=== PATIENT | female | born 1960 ===

== ENCOUNTER 2020-08-04 13:38 | Outpatient (REF) | payer OTHER, SELFPAY | END 2020-08-04 13:39 | disposition home or self-care (01) | LOC: HO.HAP 13:38 | PROVIDERS: Visit Provider Internal Medicine | DX: H90.3 Sensorineural hearing loss, bilateral (principal) | CPT/HCPCS: 92591 ==

== ENCOUNTER 2020-09-14 10:19 | Outpatient (REF) | payer OTHER, SELFPAY | END 2020-09-14 10:20 | disposition home or self-care (01) | LOC: HO.HAP 10:19 | PROVIDERS: PCP Internal Medicine; Referring Provider Otolaryngology; Visit Provider Internal Medicine | DX: Z46.1 Encounter for fitting and adjustment of hearing aid (principal) | CPT/HCPCS: V5011; V5020; V5160; V5261 ==

== ENCOUNTER 2020-10-28 14:35 | Outpatient (REF) | payer SELFPAY | END 2020-10-28 14:36 | disposition home or self-care (01) | LOC: HO.HAP 14:35 | PROVIDERS: PCP Internal Medicine; Referring Provider Internal Medicine; Visit Provider Internal Medicine | DX: Z13.89 Encounter for screening for other disorder (principal) ==

== ENCOUNTER → 2020-11-13 15:43 | Outpatient (BNVA) | payer OTHER, SELFPAY | PROVIDERS: PCP Internal Medicine; Visit Provider Hospitalist | DX: Z76.89 Persons encountering health services in other specified circumstances (principal) ==

== ENCOUNTER → 2021-03-26 13:26 | Outpatient (BNVA) | payer OTHER, SELFPAY | PROVIDERS: PCP Internal Medicine; Visit Provider Hospitalist ==

== ENCOUNTER 2021-05-19 08:37 | Outpatient (REF) | payer OTHER, SELFPAY ==
[2021-05-19 10:06] LABS: MANUAL DIFF FLAG NO
[2021-05-19 10:30] LABS: Basophils Absolute Auto 0.1 X10*3/uL (0.0-0.2); Basophils Percent Auto 1.5 % (0-2); Eosinophils Absolute Auto 0.2 X10*3/uL (0.0-0.4); Eosinophils Percent Auto 2.7 % (0-4); Hematocrit 41.2 % (37-47); Hemoglobin 13.2 g/dl (12.0-16.0); Imm Gran Abs Auto 0.02 X10*3/uL (0.00-0.03); Imm Gran Pct Auto 0.3 % (0.0-0.4); Lymphocytes Absolute Auto 1.8 X10*3/uL (1.2-4.9); Lymphocytes Percent Auto 29.1 % (20-40); Mean Corpuscular Hemoglobin 27.9 pg (27.0-33.0); Mean Corpuscular Volume 87.1 fL (80-98); Mean Platelet Volume 10.5 fL (9.4-12.3); Monocytes Absolute Auto 0.4 X10*3/uL (0.1-1.2); Monocytes Percent Auto 6.5 % (2-11); Neutrophils Absolute Auto 3.6 X10*3/uL (2.0-8.3); Neutrophils Percent Auto 59.9 % (45-73); Platelet Count 187 X10*3/uL (160-400); Red Blood Count 4.73 X10*6/uL (4.20-5.50)
[2021-05-19 11:22] LABS: Erythrocyte Sedimentation Rate 8 MM/HR (0-20)
[2021-05-20 12:11] LABS: Myeloperoxidase Antibody <1.0 AI; Proteinase 3 PR3 Antibodies <1.0 AI
[2021-05-20 22:53] LABS: Anti Nuclear Antibody Pattern Nuclear, Speckled; Anti Nuclear Antibody Screen POSITIVE (NEGATIVE)
[2021-05-25 16:12] LABS: Cyclic Citrullinated Peptide <16 UNITS
[2021-05-28 14:36] LABS: Asperg fumigatus Precip Abs NEGATIVE (NEGATIVE); Micropoly faeni Abs NEGATIVE (NEGATIVE); Pigeon serum Abs NEGATIVE (NEGATIVE); Saccharo pora viridis Abs NEGATIVE (NEGATIVE); Thermo candidus Abs NEGATIVE (NEGATIVE); Thermoa vulgaris #1 NEGATIVE (NEGATIVE)
[2021-05-28 22:41] LABS: Angiotensin Converting Enzyme 7 U/L (9-67)
== END 2021-05-19 08:38 | disposition home or self-care (01) ==
LOC: HO.LAB 08:37
PROVIDERS: PCP Internal Medicine; Visit Provider Hospitalist
DX: R91.8 Other nonspecific abnormal finding of lung field (principal); K44.9 Diaphragmatic hernia without obstruction or gangrene; J44.9 Chronic obstructive pulmonary disease, unspecified
CPT/HCPCS: 36415; 82164; 85025; 85652; 86021; 86038; 86039; 86200; 86331; 86606; 86609

== ENCOUNTER → 2021-07-21 08:44 | Outpatient (BNVA) | payer OTHER, SELFPAY | PROVIDERS: PCP Internal Medicine; Visit Provider Hospitalist ==

== ENCOUNTER → 2021-12-15 13:09 | Outpatient (BNVA) | payer OTHER, SELFPAY | PROVIDERS: PCP Internal Medicine; Visit Provider Dietitian, Registered | DX: E11.9 Type 2 diabetes mellitus without complications (principal) | CPT/HCPCS: 97802 ==

== ENCOUNTER → 2022-02-04 14:24 | Outpatient (BNVA) | payer OTHER, SELFPAY | PROVIDERS: PCP Internal Medicine; Visit Provider Hospitalist | DX: Z13.89 Encounter for screening for other disorder (principal) ==

== ENCOUNTER 2022-04-11 14:27 | Outpatient (REF) | payer OTHER, SELFPAY ==
[2022-04-11 14:45] LABS: MANUAL DIFF FLAG NO
[2022-04-11 15:03] LABS: Basophils Absolute Auto 0.1 X10*3/uL (0.0-0.2); Basophils Percent Auto 0.9 % (0-2); Eosinophils Absolute Auto 0.1 X10*3/uL (0.0-0.4); Eosinophils Percent Auto 0.7 % (0-4); Hematocrit 40.8 % (37.0-47.0); Hemoglobin 12.9 g/dl (12.0-16.0); Imm Gran Abs Auto 0.02 X10*3/uL (0.00-0.03); Imm Gran Pct Auto 0.3 % (0.0-0.4); Lymphocytes Absolute Auto 1.8 X10*3/uL (1.2-4.9); Lymphocytes Percent Auto 24.2 % (20-40); Mean Corpuscular HGB Conc 31.6 g/dl (31.0-35.0); Mean Corpuscular Hemoglobin 27.7 pg (27.0-33.0); Mean Corpuscular Volume 87.6 fL (80.0-98.0); Mean Platelet Volume 10.7 fL (9.4-12.3); Monocytes Absolute Auto 0.4 X10*3/uL (0.1-1.2); Monocytes Percent Auto 5.1 % (2-11); Neutrophils Absolute Auto 5.2 x10*3/uL (2.0-8.3); Neutrophils Percent Auto 68.8 % (45-73); Platelet Count 216 X10*3/uL (160-400); Red Blood Count 4.66 X10*6/uL (4.20-5.50); Red Cell Distribution Width 13.1 % (11.0-16.0); White Blood Count 7.6 X10*3/uL (4.8-10.8)
[2022-04-11 16:15] LABS: Erythrocyte Sedimentation Rate 6 MM/HR (0-20)
[2022-04-13 22:03] LABS: Anti Nuclear Antibody Screen POSITIVE (NEGATIVE)
[2022-04-14 11:37] LABS: IgA 210 mg/dL (70-320); IgG 590 mg/dL (600-1540); IgM 85 mg/dL (50-300)
[2022-04-15 15:33] LABS: Anti DNA DS Antibody <1 IU/mL; Antibody to SS-A Antigen <1.0 NEG AI (<1.0 NEG); Antibody to SS-B Antigen <1.0 NEG AI (<1.0 NEG)
== END 2022-04-11 14:28 | disposition home or self-care (01) ==
LOC: HO.LAB 14:27
PROVIDERS: PCP Internal Medicine; Visit Provider Hospitalist
DX: J44.9 Chronic obstructive pulmonary disease, unspecified (principal); R91.8 Other nonspecific abnormal finding of lung field
CPT/HCPCS: 36415; 82784; 82785; 85025; 85652; 86003; 86038; 86039; 86225; 86235

== ENCOUNTER → 2023-02-10 15:18 | Outpatient (BNVA) | payer OTHER, SELFPAY | PROVIDERS: PCP Internal Medicine; Visit Provider Hospitalist | DX: J44.9 Chronic obstructive pulmonary disease, unspecified (principal) ==

== ENCOUNTER 2023-06-05 14:07 | Outpatient (AMB) | payer OTHER, SELFPAY ==
[2023-06-05 14:10] VITALS: BP 118/70; PULSE 87; O2SAT 98; BMI 32.3
--- NOTE | 2023-06-05 14:10 | MHC.OFFVIS ---
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 Overall she is doing well. She continues use the oxygen supplementation at nighttime with very good effect. She also continues with the current respiratory regimen and her allergy medicine. She has been having increasing chest congestion and shortness of breath. In addition to that has noticed that worsening acid reflux disease. She is taking aovw-rup-iolgbhx omeprazole with partial improvement of the symptoms. She is also taking Tums as needed. She did follow-up with GI and is scheduled to undergo a barium swallow an additional evaluations pending. In the office we did take time to speak about the reflux diet in the importance of following closely in addition to having the small meals not eating too late and also sleeping elevated. She is going to try to follow up the recommendations to minimize her symptoms. 05/19/2021 the patient is here for pulmonary follow-up visit. Recently she was evaluated with an MRI of her pelvis and a noted some a malaise. I do not have the results. 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 In the meantime we did follow-up with a CT scan of the chest based on the pulmonary nodule that was identified on her CT scan of the abdomen. It appears she has numerous nodules up to 30 mm. The largest 1 measuring 9 mm in size in the left side. She also has an 8 mm nodule in the right hemithorax. The the etiology of the nodules are clear. Although, metastatic disease needs to be kept in differential the was also for inflammatory issues which could also result to pulmonary nodules. we did talk about different options to further address the pulmonary nodules. Based on the fact that some of the nodules were greater than or equal to 8 mm in size a PET scan will be able to further Blaise eyes these nodules. But, she is concerned about the cost of all of his testing. Therefore, will have her undergo blood work and then she can follow up with you in the can decide as far as CT scan versus repeating the CT scan in 3 months. in the meantime she is going to continue using her respiratory therapy and continues use the oxygen at nighttime. 07/21/2021 the patient is here for a pulmonary follow-up visit. She continues to have significant malaise and daytime drowsiness. Her Ayden score is elevated 14/24. she does struggle with a diagnosis of obstructive sleep apnea. The patient has tried and failed CPAP twice. We did talk about different alternatives. In addition to this currently she is on nocturnal oxygen which is partially helpful. However, she is not always adherent to the therapy. We did discuss her abnormal CT scan of the chest back in March 2021 demonstrating a 9 mm pulmonary nodule in the right middle lobe area. The patient also has other smaller nodules. Indeed with her ongoing symptoms of malaise and this abnormal finding malignancy has to be a high suspicion. She is also struggling with the diagnosis of a pulmonary nodule or cyst on 1 of her ovaries that is also being followed closely. In view of the abnormal pulmonary nodule I do believe that the rise time will be to do a PET scan at this time in order to see if this is a hypermetabolic lesion. the patient will talk to her cutter and presser to see if this is a good option to also address her adnexal lesion. 02/04/2022 the patient is here for a pulmonary follow-up visit. Since we last spoke the patient has been having little bit more chest congestion and cough. Moderate severity. Has been having some chest tightness and has required her short-acting beta agonist. Otherwise the patient is doing well. She continues to lose weight. She is still using the oxygen at nighttime at 3 L. She is wondering does enough oxygen for her. Will reassess by ordering another overnight test on her 3 L to determine if she is getting adequate oxygenation. The patient also has underlying pulmonary nodules. When we evaluated her back in the fall there was a concern a 9 mm pulmonary nodule in the underlying symptoms of fatigue and malaise as well as the ovarian lesion. Therefore PET scan may be something reasonable to do. However, the patient ended up getting a CT scan of the chest sometime in July 2021. It appeared that the 9 mm pulmonary nodule had not significantly changed from previous. However, she does have a repeat CT scan pending for January with hopes that this nodule has not changed either. If there is any significant changes we will talk about further diagnostic interventions. 04/11/2022 the patient is here for pulmonary follow-up visit. The patient had been doing well from a respiratory status at this time. She does continue to have an intermittent cough. She also complains of dry mouth and dry eyes. We did review her blood work that she had recently demonstrating an elevated AFUA. Therefore follow-up with additional testing specially with the possibility of a connective tissue disease related interstitial lung process. The patient did have a recent CT scan of the chest that we personally reviewed from back in the spring 2021. It appears that she still has multiple pulmonary nodules. Her largest nodule measuring in the right hemithorax. She has the other numerous nodules. There appear to be significantly changed from her last CT scan 6 months ago although is looks slightly larger and prominent size at least the largest nodule. Therefore plan to follow-up with a CT scan in 6-8 months. She was supposed to have an overnight oximetry but the patient was not able to follow through with the scheduling. 08/05/2022 the patient is here for a pulmonary follow-up visit. The patient does complaint of some chest tightness and wheezing. Rnhi-nx-tqhfhvze severity. Only partially improving with the Advair. Will go ahead and maximize her respiratory therapy by switching over to Trelegy inhaler. She also has a rescue inhaler and also her allergy therapies. Patient continues use the oxygen at nighttime with good effect. In addition to that we did review her last CT scan demonstrating pulmonary nodules. She was due for CT scan in September 2022. However, she is reluctant to get a so soon she opts on pushing it back a little bit. Therefore we agree to change it to January of next year. therefore, will go ahead and schedule for CT scan in January and follow up with her afterwards to review the results. If the patient has any worsening symptoms prior to that she is to call the office for an earlier evaluation. 02/10/2023 the patient is here for a pulmonary follow-up visit. The patient overall is doing better. She is responding better to the Advair. She had an adverse response to the Trelegy and she stopped it. She has not had to use her rescue inhaler. The patient is also not using the oxygen at this time. Therefore will go ahead and discontinue it. If she does decide to use it again and if she is symptomatic we can always reorder the the study to reassess her needs. She also underwent a CT scan of the chest sometime 01/16/2023 to follow-up with pulmonary nodules which appear to be stable when compared to 2021. Will go ahead and repeat 1 more time to make sure that this stability of disease and then we can just follow as needed. If the patient develops any issues prior to her next follow-up in a year she can always call for an earlier evaluation 06/05/2023 the patient is here for a pulmonary follow-up visit. Overall she is doing well. She did have 1 episode where she was exposed to pesticides and she had a reaction where she had an asthma flare-up. She did require her nebulizer. Patient now is back to her baseline. She continues use her respiratory therapy as prescribed. The patient did run out of her medication and she needs to feels. I will notice that all her medications to the pharmacy at this time. The patient also had a CT scan last back in January 2023. based on the fact that clinically she is doing we will postpone her CT scan until a year from now. The patient does have pulmonary nodules. Subcentimeter in size. I am hoping that if her CT scan from May is stable then no further serial CT scans will be warranted. If the patient has any issues prior to the next appointment she is to call the office for an earlier assessment. [facility] Medical History (Updated 04/12/22 @ 00:03 by Dionisio Navarrete MD) Asthma-COPD overlap syndrome Diabetes Hiatal hernia VALARIE (obstructive sleep apnea) Pulmonary nodules Weight loss advised Social History (Updated 03/26/21 @ 13:41 by PROSPER Arora) Patient Tobacco Use Status: Never used Tobacco Review of Systems Const Denies daytime sleepiness, Denies fatigue, Denies lethargy, Denies malaise, Denies night sweats and Reports weight loss ENT Denies change in voice, Denies lip swelling, Denies mouth pain, Reports nasal congestion, Reports nasal discharge and Denies tongue swelling Card Denies chest pain Resp Denies chest congestion, Reports cough and Reports wheezing GI Denies abdominal pain Reports pelvic pain Musc Denies no additional complaints Neuro Denies Neuro-related abnormal movements Psych Denies no additional complaints Endo Denies fatigue Jaciel/Lymph Denies easy bleeding and Denies lymphadenopathy Aller/Immun Denies lip swelling, Denies tongue swelling and Reports wheezing Physical Exam Vital Signs: Last Vital Signs Pulse 87 06/05/23 14:10 BP 118/70 06/05/23 14:10 Pulse Ox 98 06/05/23 14:10 Oxygen Delivery Method Room Air 06/05/23 14:10 BMI result Body Mass Index 32.3 Const General: alert Neck Neck: Yes normal visual inspection, Yes full ROM and Yes no lymphadenopathy Chest Chest palpation & inspection: normal inspection of the chest Resp Auscultation: diminished lung sounds Cardio Rate: regular rate Rhythm: regular rhythm Heart sounds: S1 normal heart sound present and S2 normal heart sound present GI Palpation (GI): Soft to palpation and nontender Auscultation: normal bowel sounds Skin General skin exam: rashes and/or lesions noted Immunizations pneumoc 20-andrei conj-dip cr(PF) Performing Provider: Dionisio Navarrete MD Administered by: Muriel Norman LPN on 06/05/23 14:43 Dose Route Admin Location Lot Number Expiration Date NDC Manager Zone 0.5 mL IM Left Deltoid [id number] 08/29/25 6658-0033-73 [employer] VIS Given Date VIS Provided VIS Publication Date 06/05/23 Single Vaccine 23 Eligibility Eligibility Date Funding Source Not [facility] Eligible 06/05/23 Private Assessment & Plan Assessment & Plan (1) Pulmonary nodules: Code(s): R91.8 - Other nonspecific abnormal finding of lung field (2) Hiatal hernia: Code(s): K44.9 - Diaphragmatic hernia without obstruction or gangrene (3) Asthma-COPD overlap syndrome: Code(s): J44.9 - Chronic obstructive pulmonary disease, unspecified (4) VALARIE (obstructive sleep apnea): Comment: Does not tolerate CPAP therapy. Multiple attempts failed Code(s): G47.33 - Obstructive sleep apnea (adult) (pediatric) (5) AFUA positive: Code(s): R76.8 - Other specified abnormal immunological findings in serum Plan Repeat CT scan of the chest in 1 year continue Advair HFA short-acting beta agonist as needed Prevnar 20 F/U 1 year Orders: Orders Pneumococcal 20 Immunization Today Z23 - Encounter for immunization Medications: New mupirocin 2% 1 appl topical BID 10 days 15 grams 0RF Changed From fluticasone propion-salmeterol 230-21 mcg/actuation 2 puffs PO BID 12 grams 0RF To fluticasone propion-salmeterol 230-21 mcg/actuation 2 puffs PO BID 30 days 12 grams 11RF From cetirizine 10 mg PO DAILY 90 tabs 0RF To cetirizine 10 mg PO DAILY 90 days 90 tabs 3RF Refilled albuterol sulfate 2.5 mg (3 mL) inhalation Q4-6H 30 days PRN 180 mL 11RF shortness of breath or wheezing albuterol sulfate 90 mcg/actuation (ProAir HFA) 2 puffs inhalation Q6H PRN 1 ea 11RF shortness of breath or wheezing montelukast 10 mg PO BEDTIME 90 tabs 3RF J45.909 - Unspecified asthma, uncomplicated Discontinued mfoxxeamrqt-ixiqoyvwe-pbucccsk 100-62.5-25 mcg (Trelegy Ellipta) Discontinued Reason: Doctor's Order 1 inh inhalation DAILY 30 days 60 ea 11RF J44.9 - Chronic obstructive pulmonary disease, unspecified Coding Level of Care Code Est Pt Level 4 (25125) Diagnoses Pulmonary nodules R91.8 Hiatal hernia K44.9 Asthma-COPD overlap syndrome J44.9 VALARIE (obstructive sleep apnea) G47.33 AFUA positive R76.8 Time Spent (min) 18
== END 2023-06-05 14:45 | disposition home or self-care (01) ==
PROVIDERS: PCP Internal Medicine; Visit Provider Hospitalist
DX: R91.8 Other nonspecific abnormal finding of lung field (principal); K44.9 Diaphragmatic hernia without obstruction or gangrene; J44.9 Chronic obstructive pulmonary disease, unspecified; G47.33 Obstructive sleep apnea (adult) (pediatric); R76.8 Other specified abnormal immunological findings in serum
CPT/HCPCS: 99214

== ENCOUNTER → 2023-06-05 14:07 | Outpatient (BNVA) | payer OTHER, SELFPAY | PROVIDERS: PCP Internal Medicine; Visit Provider Hospitalist | DX: J44.9 Chronic obstructive pulmonary disease, unspecified (principal); R91.8 Other nonspecific abnormal finding of lung field; E11.9 Type 2 diabetes mellitus without complications; E66.9 Obesity, unspecified; G47.33 Obstructive sleep apnea (adult) (pediatric); K44.9 Diaphragmatic hernia without obstruction or gangrene; R76.8 Other specified abnormal immunological findings in serum; Z68.32 Body mass index [BMI] 32.0-32.9, adult; Z23 Encounter for immunization | CPT/HCPCS: 90471; 90677 ==

== ENCOUNTER 2024-01-22 10:51 | Outpatient (AMB) | payer OTHER, SELFPAY ==
[2024-01-22 10:58] VITALS: PULSE 92; O2SAT 96; BMI 33.1
--- NOTE | 2024-01-22 10:58 | A.OFFVIS_ITS ---
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 Overall she is doing well. She continues use the oxygen supplementation at nighttime with very good effect. She also continues with the current respiratory regimen and her allergy medicine. She has been having increasing chest congestion and shortness of breath. In addition to that has noticed that worsening acid reflux disease. She is taking [id number] omeprazole with partial improvement of the symptoms. She is also taking Tums as needed. She did follow-up with GI and is scheduled to [facility] a barium swallow an additional evaluations pending. In the office we did take time to speak about the reflux diet in the importance of following closely in addition to having the small meals not eating too late and also sleeping elevated. She is going to try to follow up the recommendations to minimize her symptoms. 05/19/2021 the patient is here for pulmonary follow-up visit. Recently she was evaluated with an MRI of her pelvis and a noted some a malaise. I do not have the results. The patient is currently waiting to be seen by obstetrics gynecology physician. In the meantime we did follow-up with a CT scan of the chest based on the pulmonary nodule that was identified on her CT scan of the abdomen. It appears she has numerous nodules up to 30 mm. The largest 1 measuring 9 mm in size in the left side. She also has an 8 mm nodule in the right hemithorax. The the etiology of the nodules are clear. Although, metastatic disease needs to be kept in differential the was also for inflammatory issues which could also result to pulmonary nodules. we did talk about different options to further address the pulmonary nodules. Based on the fact that some of the nodules were greater than or equal to 8 mm in size a PET scan will be able to further Blaise eyes these nodules. But, she is concerned about the cost of all of his testing. Therefore, will have her undergo blood work and then she can follow up with you in the can decide as far as CT scan versus repeating the CT scan in 3 months. in the meantime she is going to continue using her respiratory therapy and continues use the oxygen at nighttime. 07/21/2021 the patient is here for a pulmonary follow-up visit. She continues to have significant malaise and daytime drowsiness. Her [place] score is elevated 14/24. she does struggle with a diagnosis of obstructive sleep apnea. The patient has tried and failed CPAP twice. We did talk about different alternatives. In addition to this currently she is on nocturnal oxygen which is partially helpful. However, she is not always adherent to the therapy. We did discuss her abnormal CT scan of the chest back in March 2021 demonstrating a 9 mm pulmonary nodule in the right middle lobe area. The patient also has other smaller nodules. Indeed with her ongoing symptoms of malaise and this abnormal finding malignancy has to be a high suspicion. She is also struggling with the diagnosis of a pulmonary nodule or cyst on 1 of her ovaries that is also being followed closely. In view of the abnormal pulmonary nodule I do believe that the rise time will be to do a PET scan at this time in order to see if this is a hypermetabolic lesion. the patient will talk to her fiberglass laminator to see if this is a good option to also address her adnexal lesion. 02/04/2022 the patient is here for a pulmonary follow-up visit. Since we last spoke the patient has been having little bit more chest congestion and cough. Moderate severity. Has been having some chest tightness and has required her short-acting beta agonist. Otherwise the patient is doing well. She continues to lose weight. She is still using the oxygen at nighttime at 3 L. She is wondering does enough oxygen for her. Will reassess by ordering another overnight test on her 3 L to determine if she is getting adequate oxygenation. The patient also has underlying pulmonary nodules. When we evaluated her back in the fall there was a concern a 9 mm pulmonary nodule in the underlying symptoms of fatigue and malaise as well as the ovarian lesion. Therefore PET scan may be something reasonable to do. However, the patient ended up getting a CT scan of the chest sometime in July 2021. It appeared that the 9 mm pulmonary nodule had not significantly changed from previous. However, she does have a repeat CT scan pending for January with hopes that this nodule has not changed either. If there is any significant changes we will talk about further diagnostic interventions. 04/11/2022 the patient is here for pulmonary follow-up visit. The patient had been doing well from a respiratory status at this time. She does continue to have an intermittent cough. She also complains of dry mouth and dry eyes. We did review her blood work that she had recently demonstrating an elevated AFUA. Therefore follow-up with additional testing specially with the possibility of a connective tissue disease related interstitial lung process. The patient did have a recent CT scan of the chest that we personally reviewed from back in the spring 2021. It appears that she still has multiple pulmonary nodules. Her largest nodule measuring in the right hemithorax. She has the other numerous nodules. There appear to be significantly changed from her last CT scan 6 months ago although is looks slightly larger and prominent size at least the largest nodule. Therefore plan to follow-up with a CT scan in 6-8 months. She was supposed to have an overnight oximetry but the patient was not able to follow through with the scheduling. 08/05/2022 the patient is here for a pulmonary follow-up visit. The patient does complaint of some chest tightness and wheezing. Iilj-dj-qimsdjry severity. Only partially improving with the Advair. Will go ahead and maximize her respiratory therapy by switching over to Trelegy inhaler. She also has a rescue inhaler and also her allergy therapies. Patient continues use the oxygen at nighttime with good effect. In addition to that we did review her last CT scan demonstrating pulmonary nodules. She was due for CT scan in September 2022. However, she is reluctant to get a so soon she opts on pushing it back a little bit. Therefore we agree to change it to January of next year. therefore, will go ahead and schedule for CT scan in January and follow up with her afterwards to review the results. If the patient has any worsening symptoms prior to that she is to call the office for an earlier evaluation. 02/10/2023 the patient is here for a pulm onary follow-up visit. The patient overall is doing better. She is responding better to the Advair. She had an adverse response to the Trelegy and she stopped it. She has not had to use her rescue inhaler. The patient is also not using the oxygen at this time. Therefore will go ahead and discontinue it. If she does decide to use it again and if she is symptomatic we can always reorder the the study to reassess her needs. She also underwent a CT scan of the chest sometime 01/16/2023 to follow- up with pulmonary nodules which appear to be stable when compared to 2021. Will go ahead and repeat 1 more time to make sure that this stability of disease and then we can just follow as needed. If the patient develops any issues prior to her next follow-up in a year she can always call for an earlier evaluation 06/05/2023 the patient is here for a pulmonary follow-up visit. Overall she is doing well. She did have 1 episode where she was exposed to pesticides and she had a reaction where she had an asthma flare-up. She did require her nebulizer. Patient now is back to her baseline. She continues use her respiratory therapy as prescribed. The patient did run out of her medication and she needs to feels. I will notice that all her medications to the pharmacy at this time. The patient also had a CT scan last back in January 2023. based on the fact that clinically she is doing we will postpone her CT scan until a year from now. The patient does have pulmonary nodules. Subcentimeter in size. I am hoping that if her CT scan from May is stable then no further serial CT scans will be warranted. If the patient has any issues prior to the next appointment she is to call the office for an earlier assessment. 01/22/2024 the patient is here for a pulm onary follow-up visit. The patient chase hdz has been doing fairly well. She continues to respond well to the Advair inhaler. She noticed initially that when she was using it once a day she was having still some symptoms in the evening. Also in the morning. Now that she is using it twice a day her symptoms are much improved. She is pain about 50 dollars per inhaler which she is expensive. She is wondering about a cheaper 1. I did recommend she can try generic Symbicort. Although right now she does not want switch because she knows that the Advair has been helping her. She can always call and I can send a new prescription whenever she likes. In the meantime she continues have daytime drowsiness. She has a known history of severe sleep apnea. She can not tolerate the CPAP. But it seems that did daytime drowsiness is getting worse now with an elevated [place] score of 13/24. Therefore, will go ahead and repeat a home sleep study this time. The patient does have cardiovascular risk factors. The patient also had a CT scan of the chest done in December 2023 which I personally reviewed with her. The patient has multiple pulmonary nodules. The largest 1 in the right middle lobe area measuring about 6 mm in size. I did personally review the CAT scan with her and we looked at multiple CT scans where the nodule seems to vary in size but a lot has to do with the cut itself and also the ways measure. For the most part is about the same. Therefore, will go ahead and hold off on additional imaging studies. Although I did advise her that may be a year and a half to 2 years which should consider reimaging. Or, the patient becomes symptomatic in any way we can also consider imaging at that point. The patient is wondering about the diagnosis of asthma COPD overlap syndrome. Her breathing overall is better. She is wondering about the obstruction. Will have her undergo a pulmonary function study and have her come back and will review together in 4-6 months. [facility] Medical History (Updated 01/23/24 @ 08:23 by Dionisio Navarrete MD) Weight loss advised Diabetes Pulmonary nodules Hiatal hernia VALARIE (obstructive sleep apnea) Asthma-COPD overlap syndrome Social History (Updated 03/26/21 @ 13:41 by PROSPER Arora) Patient Tobacco Use Status: Never used Tobacco Review of Systems Const Reports daytime sleepiness, Reports difficulty sleeping, Denies fatigue, Denies lethargy, Denies malaise, Denies night sweats, Reports snoring, Reports stops breathing during sleep and Reports weight loss ENT Denies change in voice, Denies lip swelling, Denies mouth pain, Reports nasal congestion, Reports nasal discharge and Denies tongue swelling Card Denies chest pain Resp Denies chest congestion, Reports cough, Reports snoring and Reports wheezing GI Denies abdominal pain Reports pelvic pain Musc Denies no additional complaints Neuro Denies Neuro-related abnormal movements Psych Denies no additional complaints Endo Denies fatigue Jaciel/Lymph Denies easy bleeding and Denies lymphadenopathy Aller/Immun Denies lip swelling, Denies tongue swelling and Reports wheezing Physical Exam Vital Signs: Last Vital Signs Pulse 92 01/22/24 10:58 Pulse Ox 96 01/22/24 10:58 Oxygen Delivery Method Room Air 01/22/24 10:58 BMI result Body Mass Index 33.1 Const General: alert Neck Neck: Yes normal visual inspection, Yes full ROM and Yes no lymphadenopathy Chest Chest palpation & inspection: normal inspection of the chest Resp Auscultation: diminished lung sounds Cardio Rate: regular rate Rhythm: regular rhythm Heart sounds: S1 normal heart sound present and S2 normal heart sound present GI Palpation (GI): Soft to palpation and nontender Auscultation: normal bowel sounds Skin General skin exam: rashes and/or lesions noted Assessment & Plan Assessment & Plan (1) Pulmonary nodules: Code(s): R91.8 - Other nonspecific abnormal finding of lung field (2) Hiatal hernia: Code(s): K44.9 - Diaphragmatic hernia without obstruction or gangrene (3) Asthma-COPD overlap syndrome: Code(s): J44.9 - Chronic obstructive pulmonary disease, unspecified (4) VALARIE (obstructive sleep apnea): Comment: Does not tolerate CPAP therapy. Multiple attempts failed, elevated EPWORTH Code(s): G47.33 - Obstructive sleep apnea (adult) (pediatric) (5) AFUA positive: Code(s): R76.8 - Other specified abnormal immunological findings in serum Plan no need to repeat CT scan of the chest at this time. Consider in 18-24 months continue Advair HFA, consider generic Symbicort short-acting beta agonist as needed Home PSG PFTs F/U 6 months Orders: Orders PFT pulmonary function test 01/22/24 G47.33 - Obstructive sleep apnea (adult) (pediatric), J44.9 - Chronic obstructive pulmonary disease, unspecified RT home sleep study 01/22/24 G47.33 - Obstructive sleep apnea (adult) (pediatric), J44.9 - Chronic obstructive pulmonary disease, unspecified Medications: Changed From albuterol sulfate 90 mcg/actuation (ProAir HFA) 2 puffs inhalation Q6H PRN 1 ea 11RF shortness of breath or wheezing To albuterol sulfate 90 mcg/actuation 2 puffs inhalation Q6H PRN 8.5 grams 11RF shortness of breath or wheezing Refilled fluticasone propion-salmeterol 230-21 mcg/actuation (Advair HFA) 2 puffs PO BID 12 grams 0RF Coding Level of Care Code Est Pt Level 4 (62467) Diagnoses Pulmonary nodules R91.8 Hiatal hernia K44.9 Asthma-COPD overlap syndrome J44.9 VALARIE (obstructive sleep apnea) G47.33 AFUA positive R76.8 Time Spent (min) 18
== END 2024-01-22 12:56 | disposition home or self-care (01) ==
PROVIDERS: PCP Internal Medicine; Visit Provider Hospitalist
DX: R91.8 Other nonspecific abnormal finding of lung field (principal); K44.9 Diaphragmatic hernia without obstruction or gangrene; J44.9 Chronic obstructive pulmonary disease, unspecified; G47.33 Obstructive sleep apnea (adult) (pediatric); R76.8 Other specified abnormal immunological findings in serum
CPT/HCPCS: 99214

== ENCOUNTER → 2024-01-22 10:51 | Outpatient (BNVA) | payer OTHER, SELFPAY | PROVIDERS: PCP Internal Medicine; Visit Provider Hospitalist ==

== ENCOUNTER 2024-03-29 14:28 | Outpatient (REF) | payer OTHER, SELFPAY ==
[2024-03-29 10:14] VITALS: PULSE 90; RESP 16; O2SAT 98
--- NOTE | 2024-03-29 16:33 | PFT_ITS ---
Flows: FEV1: 103 % of predicted at 2.03 L FVC: 91 % of predicted at 2.29 L FEV1/FVC: 89 % Bronchodilator response: Absent Volumes: Total lung capacity: 85 % of predicted at 3.57 L Residual volume: 79 % of predicted at 1.22 L Slow vital capacity: 87 % of predicted at 2.35 L Expiratory reserve volume: 82 % of predicted at 0.51 L Diffusion capacity: Normal Impression: No obstructive or restrictive ventilatory defect. No bronchodilator response. Normal pulmonary function test. MTDD
== END 2024-03-29 14:29 | disposition home or self-care (01) ==
LOC: HO.RESP 14:28
PROVIDERS: PCP Internal Medicine; Visit Provider Hospitalist
DX: J44.9 Chronic obstructive pulmonary disease, unspecified (principal); G47.33 Obstructive sleep apnea (adult) (pediatric)
CPT/HCPCS: 94010; 94640; 94727; 94729

== ENCOUNTER → 2024-03-29 16:33 | Outpatient (BNV) | payer OTHER, SELFPAY | PROVIDERS: PCP Internal Medicine; Visit Provider Internal Medicine Pulmonary Disease | DX: J44.9 Chronic obstructive pulmonary disease, unspecified (principal) | CPT/HCPCS: 94060; 94727; 94729 ==

== ENCOUNTER 2024-05-30 10:46 | Outpatient (AMB) | payer OTHER, SELFPAY ==
--- NOTE | 2024-05-30 10:50 | MHC.OFFVIS ---
Vital Signs 05/30/24 10:52 Height 4 ft 11 in Weight 168 lb 10.458 oz BMI 34.1 Pulse 89 Pulse Source Pulse Oximeter Pulse Oximetry (%) 98 Oxygen Delivery Method Room Air Intake Visit Reasons: Pulm Nodules/PFT Sleep Study Follow Up Staff Climate Scientist Required: No Allergies Penicillins Allergy (Severe, Verified 05/30/24 10:50) HIVES fluticasone furoate [From Trelegy Ellipta] Adverse Reaction (Intermediate, Verified 05/30/24 10:50) Agitated umeclidinium [From Trelegy Ellipta] Adverse Reaction (Intermediate, Verified 05/30/24 10:50) Agitated vilanterol [From Trelegy Ellipta] Adverse Reaction (Intermediate, Verified 05/30/24 10:50) Agitated HPI Comments Details: The patient is a 64-year-old woman with a known history of asthma COPD overlap syndrome, diabetes and obesity. Overall she is doing well. She continues use the oxygen supplementation at nighttime with very good effect. She also continues with the current respiratory regimen and her allergy medicine. She has been having increasing chest congestion and shortness of breath. In addition to that has noticed that worsening acid reflux disease. She is taking [id number] omeprazole with partial improvement of the symptoms. She is also taking Tums as needed. She did follow-up with GI and is scheduled to undergo a barium swallow an additional evaluations pending. In the office we did take time to speak about the reflux diet in the importance of following closely in addition to having the small meals not eating too late and also sleeping elevated. She is going to try to follow up the recommendations to minimize her symptoms. 05/19/2021 the patient is here for pulmonary follow-up visit. Recently she was evaluated with an MRI of her pelvis and a noted some a malaise. I do not have the results. The patient is currently waiting to be seen by software release manager. In the meantime we did follow-up with a CT scan of the chest based on the pulmonary nodule that was identified on her CT scan of the abdomen. It appears she has numerous nodules up to 30 mm. The largest 1 measuring 9 mm in size in the left side. She also has an 8 mm nodule in the right hemithorax. The the etiology of the nodules are clear. Although, metastatic disease needs to be kept in differential the was also for inflammatory issues which could also result to pulmonary nodules. we did talk about different options to further address the pulmonary nodules. Based on the fact that some of the nodules were greater than or equal to 8 mm in size a PET scan will be able to further Blaise eyes these nodules. But, she is concerned about the cost of all of his testing. Therefore, will have her undergo blood work and then she can follow up with you in the can decide as far as CT scan versus repeating the CT scan in 3 months. in the meantime she is going to continue using her respiratory therapy and continues use the oxygen at nighttime. 07/21/2021 the patient is here for a pulmonary follow-up visit. She continues to have significant malaise and daytime drowsiness. Her [place] score is elevated 14/24. she does struggle with a diagnosis of obstructive sleep apnea. The patient has tried and failed CPAP twice. We did talk about different alternatives. In addition to this currently she is on nocturnal oxygen which is partially helpful. However, she is not always adherent to the therapy. We did discuss her abnormal CT scan of the chest back in March 2021 demonstrating a 9 mm pulmonary nodule in the right middle lobe area. The patient also has other smaller nodules. Indeed with her ongoing symptoms of malaise and this abnormal finding malignancy has to be a high suspicion. She is also struggling with the diagnosis of a pulmonary nodule or cyst on 1 of her ovaries that is also being followed closely. In view of the abnormal pulmonary nodule I do believe that the rise time will be to do a PET scan at this time in order to see if this is a hypermetabolic lesion. the patient will talk to her shell trim operator to see if this is a good option to also address her adnexal lesion. 02/04/2022 the patient is here for a pulmonary follow-up visit. Since we last spoke the patient has been having little bit more chest congestion and cough. Moderate severity. Has been having some chest tightness and has required her short-acting beta agonist. Otherwise the patient is doing well. She continues to lose weight. She is still using the oxygen at nighttime at 3 L. She is wondering does enough oxygen for her. Will reassess by ordering another overnight test on her 3 L to determine if she is getting adequate oxygenation. The patient also has underlying pulmonary nodules. When we evaluated her back in the fall there was a concern a 9 mm pulmonary nodule in the underlying symptoms of fatigue and malaise as well as the ovarian lesion. Therefore PET scan may be something reasonable to do. However, the patient ended up getting a CT scan of the chest sometime in July 2021. It appeared that the 9 mm pulmonary nodule had not significantly changed from previous. However, she does have a repeat CT scan pending for January with hopes that this nodule has not changed either. If there is any significant changes we will talk about further diagnostic interventions. 04/11/2022 the patient is here for pulmonary follow-up visit. The patient had been doing well from a respiratory status at this time. She does continue to have an intermittent cough. She also complains of dry mouth and dry eyes. We did review her blood work that she had recently demonstrating an elevated AFUA. Therefore follow-up with additional testing specially with the possibility of a connective tissue disease related interstitial lung process. The patient did have a recent CT scan of the chest that we personally reviewed from back in the spring 2021. It appears that she still has multiple pulmonary nodules. Her largest nodule measuring in the right hemithorax. She has the other numerous nodules. There appear to be significantly changed from her last CT scan 6 months ago although is looks slightly larger and prominent size at least the largest nodule. Therefore plan to follow-up with a CT scan in 6-8 months. She was supposed to have an overnight oximetry but the patient was not able to follow through with the scheduling. 08/05/2022 the patient is here for a pulmonary follow-up visit. The patient does complaint of some chest tightness and wheezing. [id number] severity. Only partially improving with the Advair. Will go ahead and maximize her respiratory therapy by switching over to Trelegy inhaler. She also has a rescue inhaler and also her allergy therapies. Patient continues use the oxygen at nighttime with good effect. In addition to that we did review her last CT scan demonstrating pulmonary nodules. She was due for CT scan in September 2022. However, she is reluctant to get a so soon she opts on pushing it back a little bit. Therefore we agree to change it to January of next year. therefore, will go ahead and schedule for CT scan in January and follow up with her afterwards to review the results. If the patient has any worsening symptoms prior to that she is to call the office for an earlier evaluation. 02/10/2023 the patient is here for a pulmonary follow-up visit. The patient overall is doing better. She is responding better to the Advair. She had an adverse response to the Trelegy and she stopped it. She has not had to use her rescue inhaler. The patient is also not using the oxygen at this time. Therefore will go ahead and discontinue it. If she does decide to use it again and if she is symptomatic we can always reorder the the study to reassess her needs. She also underwent a CT scan of the chest sometime 01/16/2023 to follow-up with pulmonary nodules which appear to be stable when compared to 2021. Will go ahead and repeat 1 more time to make sure that this stability of disease and then we can just follow as needed. If the patient develops any issues prior to her next follow-up in a year she can always call for an earlier evaluation 06/05/2023 the patient is here for a pulmonary follow-up visit. Overall she is doing well. She did have 1 episode where she was exposed to pesticides and she had a reaction where she had an asthma flare-up. She did require her nebulizer. Patient now is back to her baseline. She continues use her respiratory therapy as prescribed. The patient did run out of her medication and she needs to feels. I will notice that all her medications to the pharmacy at this time. The patient also had a CT scan last back in January 2023. based on the fact that clinically she is doing we will postpone her CT scan until a year from now. The patient does have pulmonary nodules. Subcentimeter in size. I am hoping that if her CT scan from May is stable then no further serial CT scans will be warranted. If the patient has any issues prior to the next appointment she is to call the office for an earlier assessment. 01/22/2024 the patient is here for a pulmonary follow-up visit. The patient overall has been doing fairly well. She continues to respond well to the Advair inhaler. She noticed initially that when she was using it once a day she was having still some symptoms in the evening. Also in the morning. Now that she is using it twice a day her symptoms are much improved. She is pain about 50 dollars per inhaler which she is expensive. She is wondering about a cheaper 1. I did recommend she can try generic Symbicort. Although right now she does not want switch because she knows that the Advair has been helping her. She can always call and I can send a new prescription whenever she likes. In the meantime she continues have daytime drowsiness. She has a known history of severe sleep apnea. She can not tolerate the CPAP. But it seems that did daytime drowsiness is getting worse now with an elevated [place] score of 13/24. Therefore, will go ahead and repeat a home sleep study this time. The patient does have cardiovascular risk factors. The patient also had a CT scan of the chest done in December 2023 which I personally reviewed with her. The patient has multiple pulmonary nodules. The largest 1 in the right middle lobe area measuring about 6 mm in size. I did personally review the CAT scan with her and we looked at multiple CT scans where the nodule seems to vary in size but a lot has to do with the cut itself and also the ways measure. For the most part is about the same. Therefore, will go ahead and hold off on additional imaging studies. Although I did advise her that may be a year and a half to 2 years which should consider reimaging. Or, the patient becomes symptomatic in any way we can also consider imaging at that point. The patient is wondering about the diagnosis of asthma COPD overlap syndrome. Her breathing overall is better. She is wondering about the obstruction. Will have her undergo a pulmonary function study and have her come back and will review together in 4-6 months. 05/30/2024 the patient is here for a pulmonary follow-up visit. Overall the patient is feeling better. Several months ago she was having issues with her asthma. She has been having increasing exacerbations requiring antibiotics and prednisone. She has also been using her nebulizer more often. The patient now feels better. Feels like she is back to her baseline. We did review her pulmonary function studies demonstrating normal lung mechanics which is reassuring. Explained to her that with flare ups her asthma symptoms resulting worsening pulmonary capacity but overall baseline she is doing very good. The patient also had a CT scan of chest sometime this spring which is also reassuring without any significant changes in the pulmonary nodules. The patient continues to have daytime drowsiness. She is trying to continue with positional therapy. She was supposed to have a home sleep study. However, due to her asthma symptoms she had to postpone it. She will have to call to see if she can get it scheduled. Will follow-up with when she has not done. Her [place] score is still elevated 09/22. She will continue with current respiratory therapy will plan to follow-up in 4 6 months. If the patient has any difficulties prior to that she will call for an earlier assessment. [facility] Medical History (Updated 01/23/24 @ 08:23 by Dionisio Navarrete MD) Weight loss advised Diabetes Pulmonary nodules Hiatal hernia VALARIE (obstructive sleep apnea) Asthma-COPD overlap syndrome Social History (Updated 03/26/21 @ 13:41 by PROSPER Arora) Patient Tobacco Use Status: Never used Tobacco Review of Systems Const Reports daytime sleepiness, Reports difficulty sleeping, Denies fatigue, Denies lethargy, Denies malaise, Denies night sweats, Reports snoring, Reports stops breathing during sleep and Reports weight loss ENT Denies change in voice, Denies lip swelling, Denies mouth pain, Reports nasal congestion, Reports nasal discharge and Denies tongue swelling Card Denies chest pain Resp Denies chest congestion, Reports cough, Reports snoring and Reports wheezing GI Denies abdominal pain Reports pelvic pain Musc Denies no additional complaints Neuro Denies Neuro-related abnormal movements Psych Denies no additional complaints Endo Denies fatigue Jaciel/Lymph Denies easy bleeding and Denies lymphadenopathy Aller/Immun Denies lip swelling, Denies tongue swelling and Reports wheezing Physical Exam Vital Signs: Last Vital Signs Pulse 89 05/30/24 10:52 Pulse Ox 98 05/30/24 10:52 Oxygen Delivery Method Room Air 05/30/24 10:52 BMI result Body Mass Index 34.1 Const General: alert Neck Neck: Yes normal visual inspection, Yes full ROM and Yes no lymphadenopathy Chest Chest palpation & inspection: normal inspection of the chest Resp Effort & Inspection: normal respiratory effort Auscultation: diminished lung sounds Cardio Rate: regular rate Rhythm: regular rhythm Heart sounds: S1 normal heart sound present and S2 normal heart sound present GI Palpation (GI): Soft to palpation and nontender Auscultation: normal bowel sounds Skin General skin exam: rashes and/or lesions noted Assessment & Plan Assessment & Plan (1) Pulmonary nodules: Code(s): R91.8 - Other nonspecific abnormal finding of lung field Category: Medical (2) Hiatal hernia: Code(s): K44.9 - Diaphragmatic hernia without obstruction or gangrene Category: Medical (3) Asthma-COPD overlap syndrome: Code(s): J44.9 - Chronic obstructive pulmonary disease, unspecified Category: Medical (4) VALARIE (obstructive sleep apnea): Comment: Does not tolerate CPAP therapy. Multiple attempts failed, elevated EPWORTH Code(s): G47.33 - Obstructive sleep apnea (adult) (pediatric) Category: Medical (5) AFUA positive: Code(s): R76.8 - Other specified abnormal immunological findings in serum Category: Medical Plan no need to repeat CT scan of the chest at this time. Consider in 18-24 months start generic Symbicort short-acting beta agonist as needed home PSG F/U 4-6 months Medications: New budesonide-formoterol 160-4.5 mcg/actuation 2 puffs inhalation BID 3 ea 3RF 90 days J44.89 - Other specified chronic obstructive pulmonary disease Coding Level of Care Code Est Pt Level 4 (95752) Complex EM visit Add On G2211 Diagnoses Pulmonary nodules R91.8 Hiatal hernia K44.9 Asthma-COPD overlap syndrome J44.9 VALARIE (obstructive sleep apnea) G47.33 AFUA positive R76.8 Time Spent (min) 17
[2024-05-30 10:52] VITALS: PULSE 89; O2SAT 98; BMI 34.1
== END 2024-05-30 11:15 | disposition home or self-care (01) ==
PROVIDERS: PCP Internal Medicine; Visit Provider Hospitalist
DX: R91.8 Other nonspecific abnormal finding of lung field (principal); K44.9 Diaphragmatic hernia without obstruction or gangrene; J44.9 Chronic obstructive pulmonary disease, unspecified; G47.33 Obstructive sleep apnea (adult) (pediatric); R76.8 Other specified abnormal immunological findings in serum
CPT/HCPCS: 99214; G2211

== ENCOUNTER → 2024-05-30 10:46 | Outpatient (BNVA) | payer OTHER, SELFPAY | PROVIDERS: PCP Internal Medicine; Visit Provider Hospitalist ==

== ENCOUNTER 2025-01-22 09:58 | Outpatient (AMB) | payer MEDICARE, MEDICAID, SELFPAY ==
[2025-01-22 11:02] VITALS: BP 128/66; PULSE 83; O2SAT 97; BMI 33.6
--- NOTE | 2025-01-22 11:02 | A.OFFVIS_ITS ---
Vital Signs 01/22/25 11:02 Height 4 ft 11 in Weight 166 lb 7.184 oz BMI 33.6 BP 128/66 Blood Pressure Location Rt brachial Position Sitting Pulse 83 Pulse Source Pulse Oximeter Pulse Oximetry (%) 97 Oxygen Delivery Method Room Air Intake Visit Reasons: Pulm Nodules Allergies Penicillins Allergy (Severe, Verified 01/22/25 11:05) HIVES fluticasone furoate [From Trelegy Ellipta] Adverse Reaction (Intermediate, Verified 01/22/25 11:05) Agitated umeclidinium [From Trelegy Ellipta] Adverse Reaction (Intermediate, Verified 01/22/25 11:05) Agitated vilanterol [From Trelegy Ellipta] Adverse Reaction (Intermediate, Verified 01/22/25 11:05) Agitated HPI Comments Details: The patient is a 64-year-old woman with a known history of asthma COPD overlap syndrome, diabetes and obesity. Overall she is doing well. She continues use the oxygen supplementation at nighttime with very good effect. She also continues with the current respiratory regimen and her allergy medicine. She has been having increasing chest congestion and shortness of breath. In addition to that has noticed that worsening acid reflux disease. She is taking [id number] omeprazole with partial improvement of the symptoms. She is also taking Tums as needed. She did follow-up with GI and is scheduled to undergo a barium swallow an additional evaluations pending. In the office we did take time to speak about the reflux diet in the importance of following closely in addition to having the small meals not eating too late and also sleeping elevated. She is going to try to follow up the recommendations to minimize her symptoms. 05/19/2021 the patient is here for pulmonary follow-up visit. Recently she was evaluated with an MRI of her pelvis and a noted some a malaise. I do not have the results. The patient is currently waiting to be seen by staker surveying. In the meantime we did follow-up with a CT scan of the chest based on the pulmonary nodule that was identified on her CT scan of the abdomen. It appears she has numerous nodules up to 30 mm. The largest 1 measuring 9 mm in size in the left side. She also has an 8 mm nodule in the right hemithorax. The the etiology of the nodules are clear. Although, metastatic disease needs to be kept in differential the infant was also for inflammatory issues which could also result to pulmonary nodules. we did talk about different options to further address the pulmonary nodules. Based on the fact that some of the nodules were greater than or equal to 8 mm in size a PET scan will be able to further Blaise eyes these nodules. But, she is concerned about the cost of all of his testing. Therefore, will have her undergo blood work and then she can follow up with you in the can decide as far as CT scan versus repeating the CT scan in 3 months. in the meantime she is going to continue using her respiratory therapy and continues use the oxygen at nighttime. 07/21/2021 the patient is here for a pulmonary follow-up visit. She continues to have significant malaise and daytime drowsiness. Her [place] score is elevated 14/24. she does struggle with a diagnosis of obstructive sleep apnea. The patient has tried and failed CPAP twice. We did talk about different alternatives. In addition to this currently she is on nocturnal oxygen which is partially helpful. However, she is not always adherent to the therapy. We did discuss her abnormal CT scan of the chest back in March 2021 demonstrating a 9 mm pulmonary nodule in the right middle lobe area. The patient also has other smaller nodules. Indeed with her ongoing symptoms of malaise and this abnormal finding malignancy has to be a high suspicion. She is also struggling with the diagnosis of a pulmonary nodule or cyst on 1 of her ovaries that is also being followed closely. In view of the abnormal pulmonary nodule I do believe that the rise time will be to do a PET scan at this time in order to see if this is a hypermetabolic lesion. the patient will talk to her finished carpet inspector to see if this is a good option to also address her adnexal lesion. 02/04/2022 the patient is here for a pulmonary follow-up visit. Since we last spoke the patient has been having little bit more chest congestion and cough. Moderate severity. Has been having some chest tightness and has required her short-acting beta agonist. Otherwise the patient is doing well. She continues to lose weight. She is still using the oxygen at nighttime at 3 L. She is wondering does enough oxygen for her. Will reassess by ordering another overnight test on her 3 L to determine if she is getting adequate oxygenation. The patient also has underlying pulmonary nodules. When we evaluated her back in the fall there was a concern a 9 mm pulmonary nodule in the underlying symptoms of fatigue and malaise as well as the ovarian lesion. Therefore PET scan may be something reasonable to do. However, the patient ended up getting a CT scan of the chest sometime in July 2021. It appeared that the 9 mm pulmonary nodule had not significantly changed from previous. However, she does have a repeat CT scan pending for January with hopes that this nodule has not changed either. If there is any significant changes we will talk about further diagnostic interventions. 04/11/2022 the patient is here for pulmonary follow-up visit. The patient had been doing well from a respiratory status at this time. She does continue to have an intermittent cough. She also complains of dry mouth and dry eyes. We did review her blood work that she had recently demonstrating an elevated AFUA. Therefore follow-up with additional testing specially with the possibility of a connective tissue disease related interstitial lung process. The patient did have a recent CT scan of the chest that we personally reviewed from back in the spring 2021. It appears that she still has multiple pulmonary nodules. Her largest nodule measuring in the right hemithorax. She has the other numerous nodules. There appear to be significantly changed from her last CT scan 6 months ago although is looks slightly larger and prominent size at least the largest nodule. Therefore plan to follow-up with a CT scan in 6-8 months. She was supposed to have an overnight oximetry but the patient was not able to follow through with the scheduling. 08/05/2022 the patient is here for a pulmonary follow-up visit. The patient does complaint of some chest tightness and wheezing. [id number] severity. Only partially improving with the Advair. Will go ahead and maximize her respiratory therapy by switching over to Trelegy inhaler. She also has a rescue inhaler and also her allergy therapies. Patient continues use the oxygen at nighttime with good effect. In addition to that we did review her last CT scan demonstrating pulmonary nodules. She was due for CT scan in September 2022. However, she is reluctant to get a so soon she opts on pushing it back a little bit. Therefore we agree to change it to January of next year. therefore, will go ahead and schedule for CT scan in January and follow up with her afterwards to review the results. If the patient has any worsening symptoms prior to that she is to call the office for an earlier evaluation. 02/10/2023 the patient is here for a pulmonary follow-up visit. The patient overall is doing better. She is responding better to the Advair. She had an adverse response to the Trelegy and she stopped it. She has not had to use her rescue inhaler. The patient is also not using the oxygen at this time. Therefore will go ahead and discontinue it. If she does decide to use it again and if she is symptomatic we can always reorder the the study to reassess her needs. She also underwent a CT scan of the chest sometime 01/16/2023 to follow- up with pulmonary nodules which appear to be stable when compared to 2021. Will go ahead and repeat 1 more time to make sure that this stability of disease and then we can just follow as needed. If the patient develops any issues prior to her next follow-up in a year she can always call for an earlier evaluation 06/05/2023 the patient is here for a pulmonary follow-up visit. Overall she is doing well. She did have 1 episode where she was exposed to pesticides and she had a reaction where she had an asthma flare-up. She did require her nebulizer. Patient now is back to her baseline. She continues use her respiratory therapy as prescribed. The patient did run out of her medication and she needs to feels. I will notice that all her medications to the pharmacy at this time. The patient also had a CT scan last back in January 2023. based on the fact that clinically she is doing we will postpone her CT scan until a year from now. The patient does have pulmonary nodules. Subcentimeter in size. I am hoping that if her CT scan from May is stable then no further serial CT scans will be warranted. If the patient has any issues prior to the next appointment she is to call the office for an earlier assessment. 01/22/2024 the patient is here for a pulmonary follow-up visit. The patient overall has been doing fairly well. She continues to respond well to the Advair inhaler. She noticed initially that when she was using it once a day she was having still some symptoms in the evening. Also in the morning. Now that she is using it twice a day her symptoms are much improved. She is pain about 50 dollars per inhaler which she is expensive. She is wondering about a cheaper 1. I did recommend she can try generic Symbicort. Although right now she does not want switch because she knows that the Advair has been helping her. She can always call and I can send a new prescription whenever she likes. In the meantime she continues have daytime drowsiness. She has a known history of severe sleep apnea. She can not tolerate the CPAP. But it seems that did daytime drowsiness is getting worse now with an elevated [place] score of 13/24. Therefore, will go ahead and repeat a home sleep study this time. The patient does have cardiovascular risk factors. The patient also had a CT scan of the chest done in December 2023 which I personally reviewed with her. The patient has multiple pulmonary nodules. The largest 1 in the right middle lobe area measuring about 6 mm in size. I did personally review the CAT scan with her and we looked at multiple CT scans where the nodule seems to vary in size but a lot has to do with the cut itself and also the ways measure. For the most part is about the same. Therefore, will go ahead and hold off on additional imaging studies. Although I did advise her that may be a year and a half to 2 years which should consider reimaging. Or, the patient becomes symptomatic in any way we can also consider imaging at that point. The patient is wondering about the diagnosis of asthma COPD overlap syndrome. Her breathing overall is better. She is wondering about the obstruction. Will have her undergo a pulmonary function study and have her come back and will review together in 4-6 months. 05/30/2024 the patient is here for a pulmonary follow-up visit. Overall the patient is feeling better. Several months ago she was having issues with her asthma. She has been having increasing exacerbations requiring antibiotics and prednisone. She has also been using her nebulizer more often. The patient now feels better. Feels like she is back to her baseline. We did review her pulmonary function studies demonstrating normal lung mechanics which is reassuring. Explained to her that with flare ups her asthma symptoms resulting worsening pulmonary capacity but overall baseline she is doing very good. The patient also had a CT scan of chest sometime this spring which is also reassuring without any significant changes in the pulmonary nodules. The patient continues to have daytime drowsiness. She is trying to continue with positional therapy. She was supposed to have a home sleep study. However, due to her asthma symptoms she had to postpone it. She will have to call to see if she can get it scheduled. Will follow-up with when she has not done. Her [place] score is still elevated 09/22. She will continue with current respiratory therapy will plan to follow-up in 4 6 months. If the patient has any difficulties prior to that she will call for an earlier assessment. 01/22/2025 the patient is here for a pulmonary follow-up visit. Overall the patient has been doing fair. She is now retired. The patient is living with her niece who has cats and dogs and she is allergic to both. She does have a rescue inhaler. She is not on a maintenance at this time. Her insurance would not cover the Advair HFA. I will send her Breo so the pharmacy. I will send her the low dose because she is sensitive to the steroids. Hopefully she can not tolerate it well. She has had issues with Trelegy in the past but I do believe that is because of the long-acting muscarinic antagonist that did not agree with her. She also has issues with depression and she is working seen a therapist soon. As far as her pulmonary nodules last CT scan was back in December 2023. The nodules were stable. Will continue to monitor them but will hold off on additional imaging studies for another 6-12 months. If she has any worsening symptoms prior to this she can always call and we can always readdress the nodules have an earlier time. [facility] Medical History (Updated 01/23/24 @ 08:23 by Dionisio Navarrete MD) Weight loss advised Diabetes Pulmonary nodules Hiatal hernia VALARIE (obstructive sleep apnea) Asthma-COPD overlap syndrome Social History Patient Tobacco Use Status: Never used Tobacco Review of Systems Const Reports daytime sleepiness, Reports difficulty sleeping, Denies fatigue, Denies lethargy, Denies malaise, Denies night sweats, Reports snoring, Reports stops breathing during sleep and Reports weight loss ENT Denies change in voice, Denies lip swelling, Denies mouth pain, Reports nasal congestion, Reports nasal discharge and Denies tongue swelling Card Denies chest pain Resp Denies chest congestion, Reports cough, Reports snoring and Reports wheezing GI Denies abdominal pain Reports pelvic pain Musc Denies no additional complaints Neuro Denies Neuro-related abnormal movements Psych Denies no additional complaints Endo Denies fatigue Jaciel/Lymph Denies easy bleeding and Denies lymphadenopathy Aller/Immun Denies lip swelling, Denies tongue swelling and Reports wheezing Physical Exam Vital Signs: Last Vital Signs Pulse 83 01/22/25 11:02 BP 128/66 01/22/25 11:02 Pulse Ox 97 01/22/25 11:02 Oxygen Delivery Method Room Air 01/22/25 11:02 BMI result Body Mass Index 33.6 Const General: alert Neck Neck: Yes normal visual inspection, Yes full ROM and Yes no lymphadenopathy Chest Chest palpation & inspection: normal inspection of the chest Resp Effort & Inspection: normal respiratory effort Auscultation: diminished lung sounds Cardio Rate: regular rate Rhythm: regular rhythm Heart sounds: S1 normal heart sound present and S2 normal heart sound present GI Palpation (GI): Soft to palpation and nontender Auscultation: normal bowel sounds Skin General skin exam: rashes and/or lesions noted Assessment & Plan Assessment & Plan (1) Pulmonary nodules: Code(s): R91.8 - Other nonspecific abnormal finding of lung field Category: Medical (2) Hiatal hernia: Code(s): K44.9 - Diaphragmatic hernia without obstruction or gangrene Category: Medical (3) Asthma-COPD overlap syndrome: Code(s): J44.9 - Chronic obstructive pulmonary disease, unspecified Category: Medical (4) VALARIE (obstructive sleep apnea): Comment: Does not tolerate CPAP therapy. Multiple attempts failed, elevated EPWORTH Code(s): G47.33 - Obstructive sleep apnea (adult) (pediatric) Category: Medical (5) AFUA positive: Code(s): R76.8 - Other specified abnormal immunological findings in serum Category: Medical Plan Breo 100 short-acting beta agonist as needed consider home PSG repeat CT chest in 6-12 months F/U 8-12 months Medications: New fluticasone furoate-vilanterol 100-25 mcg/dose (Breo Ellipta) 1 inh inhalation DAILY 60 ea 11RF 30 days Refilled albuterol sulfate 90 mcg/actuation 2 puffs inhalation Q6H PRN 8.5 grams 11RF shortness of breath or wheezing Discontinued fluticasone propion-salmeterol 230-21 mcg/actuation (Advair HFA) Discontinued Reason: Doctor's Order 2 puffs inhalation BID 30 days 12 grams 11RF Coding Level of Care Code Est Pt Level 4 (53914) Diagnoses Pulmonary nodules R91.8 Hiatal hernia K44.9 Asthma-COPD overlap syndrome J44.9 VALARIE (obstructive sleep apnea) G47.33 AFUA positive R76.8 Time Spent (min) 16
--- OUTSIDE RECORDS SUMMARY | 2025-01-22 11:22 | XMS_ITS | Continuity of Care Document ---
Author Organization [facility] [address] [facility] [address] [place] [address] Phone [phone] Care Team Providers Care Big Data Hadoop Developer Name Role Phone Gabriella Adamson M.D. Care Team Information Receive r [phone] Problems Active Problems Provider Date Type 1 diabetes mellitus Dimple Dobson M.D. Onset: 08/19/2022 Dyslipidemia Dimple Dobson M.D. Ons et: 08/19/2022 Primary hypothyroidism Juan Singer Onset: 08/19/2022 Alkaline phosphatase raised Dimple vicente M.D. Onset: 08/19/2022 Gastroesophageal reflux disease Dimple Looney M.D. Onset: 08/19/2022 Posttraumatic stress disorder Dimple mejias M.D. Onset: 08/19/2022 Essential hypertension Juan Singer Onset: 08/19/2022 Asthma Dimple Dobson M.D. Ons et: 08/19/2022 Obstructive sleep apnea syndrome Dimple Garcia M.D. Onset: 08/19/2022 H/O: head injury Dimple Dobson M.D. On set: 08/19/2022 Mixed hyperlipidemia Treva Singer Onset: 08/19/2022 Migraine Dimple Dobson M.D. Ons et: 08/19/2022 Social History Type Date Description Comments Sex Unknown Lives With Alone Occupation [employer] Work Status Full-Time Employment ETOH Use Denies alcohol use Tobacco Use Start: Unknown Patient has never smoked Allergies and adverse reactions Active Allergies Criticality Reaction Severity Comments Date Penicillin Unable to assess criticality 08/19/2022 Inactive Allergies NKDA Unable to assess criticality 08/19/2022 Medications Active Medications SIG Qnty Indications Ordering Provider Date Onetouch VerioStrips Check blood sugars 4 to 6 times daily, using a new test strip each time. 550units Z96.41 Dimple Dobson M.D. 12/24/2024 E10.65 Levothyroxine Auipsh14hzo Tablets Take 1 Tablet By Mouth Every Day 6 X Week 90tabs Dimple Dobson M.D. 05/30/2023 Cetirizine XTM32xj Tablets Take 1 Tablet By Mouth Daily Dionisio Navarrete Bupropion Hydrochloride ER (XL)300mg Tablets ER 24HR Take 1 Tablet By Mouth Every Morning Gabriella Adamson M.D. Freestyle Lite Blood GlucoseStrips Use To Test Blood Sugar 7 Times A Day 300units E10.3293 Dimple Dobson M.D. Z96.41 Montelukast Zvwqdz51ik Tablets Take 1 Tablet By Mouth AT Bedtime Dionisio Navarrete Cwerhoh522Ugaz/ML Solution Inject 90 Units Daily With Insulin Pump 90ml E10.9 Dimple Dobson M.D. Proair LFI979(90Base) mcg/Act Aerosol Inhale 2 Puffs By Mouth Every 6 Hours as Needed For Shortness Of Breath Or Wheez Dionisio Navarrete Itksfxffbf91id Tablets Take 1 Tablet By Mouth Every Day Gabriella Adamson M.D. Freestyle Lite TestStrips use as directed 7 times daily 700units E10.8 Dimple Dobson M.D. Albuterol Sulfate(2.5mg/3ML) 0.083% Nebulizer Use 1 Vial Via Nebulizer Every 4 To 6 Hours as Needed For Shortness Of Breath Or Dionisio Navarrete Ondansetron HCL4mg Tablets Take 1 Tablet By Mouth Every 8 Hours as Needed For Nausea Gabriella Adamson M.D. Vitamin Q042dbt (1000 Ut) Capsules 1 by mouth every day Dimple Dobson M.D. Vitamin [id number] Tablets ER 1 by mouth every day Dimple Dobson M.D. Pravastatin Ioicsv22vg Tablets 1 by mouth every day Unknown Amlodipine Tzhgucal6mp Tablets Take 1 Tablet By Mouth Daily Unknown Vital Signs Date Vital Result Comment 12/11/2024 1:17pm BP Systolic 130 mmHg BP Diastolic 60 mmHg Heart Rate 100 /min Height 58 inches 4'10 Weight 163.50 lb BMI (Body Mass Index) 34.2 kg/m2 Results Test Acquired Date Facility Test Result H/L Range Note Hemoglobin A1c 12/11/2024 Inhouse Hemoglobin A1c 7.7% Glucose Fingerstick 12/11/2024 Inhouse Glucose Fingerstick 141 Alk Phos Isoenzyme 07/27/2024 [facility] Liver Fraction: 46 % 18-85 Bone Fraction: 51 % 14-68 Intestinal Frac.: 3 % 0-18 Anti-Mitochondria l Ab by Ifa 07/27/2024 [facility] Anti-Mitochondri al Ab by Ifa <1:20 <1:20 1 Anti-Mitochondria l AB By Ifa 07/23/2024 [facility] Anti-Mitochondri al AB By Ifa <pending> Written Authorization 07/17/2024 [facility] Written Authorization See Comment: 2 Hemoglobin A1c 07/17/2024 Inhouse Hemoglobin A1c 8.1% Glucose Fingerstick 07/17/2024 Inhouse Glucose Fingerstick 150 Request Problem 07/17/2024 [facility] Request Problem TNP 3 Alkaline Phosphatase Isoenzymes 07/17/2024 [facility] Liver Fraction: TNP % 4 Bone Fraction: TNP % 5 Intestinal Frac.: TNP % 6 Alkaline Phosphatase 157 IU/L High 44-121 TSH+Free T4 07/17/2024 [facility] TSH 0.314 uIU/mL Low 0.450-4. 500 T4,Free(Direct) 1.26 ng/dL 0.82-1.7 7 Comp. Metabolic Panel (14) 07/17/2024 [facility] Glucose 153 mg/dL High 70-99 BUN 18 mg/dL 8-27 Creatinine 0.89 mg/dL 0.57-1.0 0 eGFR 72 mL/min/1. 73 >59 BUN/Creatinine Ratio 20 12-28 Sodium 140 mmol/L 134-144 Potassium 3.8 mmol/L 3.5-5.2 Chloride 102 mmol/L 96-106 Carbon Dioxide, Total 22 mmol/L 20-29 Calcium 9.6 mg/dL 8.7-10.3 Protein, Total 6.6 g/dL 6.0-8.5 Albumin 4.4 g/dL 3.9-4.9 Globulin, Total 2.2 g/dL 1.5-4.5 Bilirubin, Total <0.2 mg/dL 0.0-1.2 Alkaline Phosphatase 155 IU/L High 44-121 Ast (Sgot) 22 IU/L 0-40 Alt (SGPT) 16 IU/L 0-32 Glucose Fingerstick 03/20/2024 Inhouse Glucose Fingerstick 142 Hemoglobin A1c 03/20/2024 Inhouse Hemoglobin A1c 7.9% TSH With Reflex To FT4 11/13/2023 [facility] TSH With Reflex To FT4 0.07 uIU/mL Low (0.4-4.2 ) Hemoglobin A1c 11/13/2023 Inhouse Hemoglobin A1c 7.9% Glucose Fingerstick 11/13/2023 Inhouse Glucose Fingerstick 186 Free T4 11/13/2023 [facility] Free T4 1.50 ng/dL (0.70-1. 80) TSH With Reflex To FT4 05/30/2023 [facility] TSH With Reflex To FT4 0.21 uIU/mL Low (0.4-4.2 ) Free T4 05/30/2023 [facility] Free T4 1.37 ng/dL (0.70-1. 80) TSH With Reflex To FT4 04/08/2023 [facility] TSH With Reflex To FT4 <pending> Urinary Microalbumin 04/05/2023 [facility] Micro-Albumin <12.0 mg/L (<20) 7 Malb/Creat Ratio Unable t o calcul <SEE NOTE> MG/GM (0-20) 8 Urine Creat For Micro Albumin 123.2 mg/dL Comprehensive Metabolic Panl 04/05/2023 [facility] Glucose 183 mg/dL High (70-99) BUN 23 mg/dL (8-23) Creatinine 0.9 mg/dL (0.5-1.0 ) Sodium 141 mmol/L (133-145 ) Potassium 4.2 mmol/L (3.6-5.2 ) Chloride 106 mmol/L (98-107) Bicarbonate 27 mmol/L (22-29) Anion Gap 8 (4-17) Albumin 4.3 GM/DL (3.4-4.8 ) Calcium 9.4 mg/dL (8.6-10. 5) Bilirubin,Total 0.2 mg/dL (0-1.2 ) Total Protein 6.2 GM/DL (6.2-8.2 ) Ag Ratio 2.3 Ast 17 U/L (0-32) Alk Phos 90 U/L (35-104) Alt 10 U/L (0-33) Estimated GFR Creatinine 70 ML/MIN/1. 73M2 9 Lipid Panel 04/05/2023 [facility] Cholesterol, Total 122 mg/dL (<200) Triglyceride 134 mg/dL (<150) HDL Chol 51 mg/dL (>39) LDL Cholesterol , Calculated 44 mg/dL (0-130) Non HDL Cholesterol (Calc) 71 mg/dL (<160) Complete Abc With Diff 04/05/2023 [facility] WBC 7.5 K/MM3 (4.0-11. 0) RBC 4.21 M/MM3 (4.20-5. 40) HGB 11.9 GM/DL (11.7-15 .5) HCT 38.6 % (35.7-45 .8) MCV 91.7 FL (80.0-10 0.0) MCH 28.3 pg (27.0-34 .0) MCHC 30.8 g/dL Low (33.0-37 .0) PLT 184 K/MM3 (150-460 ) RDW-SD 43.8 FL (<47.0) MPV 11.1 FL (9.4-12. 4) Automated NRBC 0.0 #/100WBC' S Abs. NRBC 0.0 K/MM3 Neut # 4.8 K/MM3 (1.3-7.0 ) Lymph # 2.0 K/MM3 (0.8-3.1 ) Maries# 0.5 K/MM3 (0.4-0.9 ) Eo # 0.1 K/MM3 (0.0-0.4 ) Baso # 0.1 K/MM3 (0.0-0.1 ) Abs. Imm Gran 0.0 K/MM3 Neut 64.5 % (44-76) Lymph 27.0 % (15-43) Monocyte 6.0 % (4.5-10. 5) Eo 1.3 % (0-6) Baso 0.9 % (0-2) Imm Gran 0.3 % TSH With Reflex To FT4 04/05/2023 [facility] TSH With Reflex To FT4 1.80 uIU/mL (0.4-4.2 ) Glucose Fingerstick 04/05/2023 Inhouse Glucose Fingerstick 202 Glucose Fingerstick 08/19/2022 Inhouse Glucose Fingerstick 136 Hemoglobin A1c 08/19/2022 Inhouse Hemoglobin A1c 7.1 1 A courtesy copy of t his report has been sent to [phone] Test(s) [id number] Ab by IFA was developed and its performance characteristics determined by [facility]. It has not been cleared or approved by the Food and Drug Administration. 2 Written Authorizatio n Received. Authorization received from LIZ MIGUEL for Link Request on 07-23-2024 Logged by Magdy Posey 3 Test not performed. Insufficient specimen to perform or complete analysis. TEST: [id number] Liver Fraction: Panel: [id number] Bone Fraction: Panel: [id number] Intestinal Frac.: Panel: [id number] 4 Test not performed. Insufficient specimen to perform or complete analysis. 5 Test not performed. Insufficient specimen to perform or complete analysis. 6 Test not performed. Insufficient specimen to perform or complete analysis. 7 The urine microalbum in test is designed to monitor renal function. When screening for Bence Serrano proteinuria, urine electrophoresis is recommended. 8 Unable to calculate 9 Creatinine based est imated glomerular filtration (eGFR) in adults is calculated using the [employer] recommended 2020 CKD-EPI equation. Estimates GFR from serum creatinine, age and sex. Procedures Date Code Description Status 12/11/2024 67605 Glucose Monitoring Interpeta tion And Report Completed 07/17/2024 20803 Glucose Monitoring Interpeta tion And Report Completed 07/17/2024 01285 Collection Of Venous Blood B y Venipuncture Completed 03/20/2024 88865 Glucose Monitoring Interpeta tion And Report Completed 11/13/2023 15933 Glucose Monitoring Interpeta tion And Report Completed 11/13/2023 14442 Collection Of Venous Blood B y Venipuncture Completed 10/09/2023 NSHOWOFF No Show Office Visit Complet ed 04/05/2023 00403 Glucose Monitoring Interpeta tion And Report Completed 08/19/2022 87424 Glucose Monitoring Interpeta tion And Report Completed Medical Devices Description No Information Available Encounters Type Date Location Provider Dx Diagnosis Office Visit 12/11/2024 1:00p Main Office Dimple Dobson M.D. 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 12/11/2024 Z96.41 Presence of insu roe pump (external) (internal) Dimple Dobson M.D. 12/11/2024 E03.9 Hypothyroidism, unspecified Dimple Dobson M.D. 12/11/2024 I10 Essential (primary) hyperten clark Dimple Dobson M.D. 12/11/2024 E78.2 Mixed hyperlipidemia Quan Dobson M.D. 12/11/2024 E10.65 Type 1 diabetes mellitus with hyperglycemia Dimple Dobson M.D. Plan of Treatment Future Appointment(s):* 04/04/2025 2:30 pm - Dimpel Dobson M.D. at Main Office 08/19/2022 - Dimple Dobson M.D.* E10.319 Type 1 diabetes mellitus with unspecified diabetic retinopathy without macular edema * I10 Essential (primary) hypertension * E03.9 Hypothyroidism, unspecified * E78.2 Mixed hyperlipidemia Functional Status Description No Information Available Mental Status Description No Information Available Referrals Description No Information Available
--- OUTSIDE RECORDS SUMMARY | 2025-01-22 11:22 | XMS_ITS | Encounter Summary ---
Author Organization [facility] Address [address] [place] [address] Care Team Providers Care Canned Food Reconditioning Inspector Name Role Phone Gabriella Adamson MD Primary Care Provider [phone] Reason for Visit * Reason Comments Foot Pain Study Assistant b/l foot pain * Consultation (Routine) - Closed Specialty Diagnoses / Procedures Referred By Huber mendes Referred To Contact Podiatry / Orthopaedic Surgery Diagnoses Type 2 diabetes mellitus with obesity (CMS/HCC) Pain in both feet Procedures DC VISIT OFFICE OUTPATIENT ESTABLISHED MODERATE LEVEL Gabriella Adamson MD [address] [facility] [address] [place] [address] Phone: tel: fax: Orthopedic Surgery [facility] [address] [facility] [address] [place] [address] Phone: tel: fax: Referral ID Status Reason Start Date Expiration Date V isits Requested Visits Authorized [id number] Closed Specialty Services Required 01/07/2025 01/07/2026 1 1 Encounter Details Date Type Department Care Team (Late st Contact Info) Description 01/10/2025 2:45 PM EDT Consult Orthopedic Surgery [facility] [address] [facility] [address] [place] [address] Pal Yang DPM [address] [facility] [address] [place] [address] Poorly controlled type 2 diabetes mellitus with neuropathy (CMS/HCC) (Primary Dx); Pain in both feet; Arthritis of both feet; Hammertoes of both feet; Dermatophytosis, nail Social History Tobacco Use Types Packs/Day Years Used Date Smoking Tobacco: Never Smokeless Tobacco: Never Alcohol Use Standard Drinks/Week Comments No 0 (1 standard drink = 0.6 oz pur e alcohol) Comments Unknown Sex and Gender Information Value Date Recorded Sex Assigned at Female 01/16/2025 1:18 PM EDT Legal Sex Female 11:35 PM EST Gender Identity Female 01/16/2025 1:18 PM EDT Sexual Orientation Straight 01/16/2025 1: 24 PM EDT documented as of this encounter Last Filed Vital Signs Vital Sign Reading Time Taken Comments Blood Pressure - - Pulse - - Temperature - - Respiratory Rate - - Oxygen Saturation - - Inhaled Oxygen Concentration - - Weight 72.1 kg (159 lb) 01/10/2025 3:23 PM EDT Height 149.9 cm (4' 11.02 ) 01/10/2025 3:23 PM E DT Body Mass Index 32.1 01/10/2025 3:23 PM EDT documented in this encounter Ordered Prescriptions Prescription Sig Dispense Quantity Refills Last Filled Start Date End Date ammonium lactate (AmLactin) 12 % lotion Apply topically if needed for dry skin. 400 g 2 01/10/2025 documented in this encounter Progress Notes * Pal Yang, JIM - 01/10/2025 2:45 PM EDT Referring MD: Gabriella Adamson MD Last PCP visit: 01/07/2025 IDENTIFIER: @TITLE@ Bebeto is a 64 y.o. year old female who presents for consultation. CC: Bilateral foot pain HPI: Patient presents to office today for initial diabetic foot evaluation as recommended by their primary care physician. Patient states that they have been diabetic for the past few years and some tingling numbness of the feet bilaterally Denies any history of ulceration, or infection. Patient would like to inquire about their pedal hygiene, as their toenails have become elongated and painful. Patient is not using antifungals at this time. Patient is wearing good supportive shoes at this time. Patient reports mild calluses that are becoming bothersome. Patient with minimal other pedal complaints at this time. Patient's FBS this AM was evaluate Recent A1C is %. 8.0 ROS: GENERAL: Pt denies nausea, fever, vomiting, chills, or shortness of breath. Pt in NAD. CARDIOLOGY: pt denies chest pain, palpitations LUNGS: pt denies shortness of breath MUSCULOSKELETAL: See HPI, otherwise no joint pain or swelling, back pain, or muscle pain. SKIN: see HPI, otherwise no lesions, rash or itching NEURO: No persistent headache, weakness or numbness The remainder of the review of systems is noncontributory PAST MEDICAL HISTORY: Patient Active Problem List Diagnosis Abscess of chest (CMS/HCC) Allergic rhinitis Change in stool COPD (chronic obstructive pulmonary disease) (CMS/HCC) Depression Diabetic gastroparesis (CMS/HCC) Hyperlipidemia Hypertension Hypothyroid Iron deficiency anemia Irritable bowel syndrome with constipation Migraine Moderate persistent asthma VALARIE (obstructive sleep apnea) Ovarian mass Pulmonary nodules Rectal bleeding Thyroid nodule Upset stomach Vitamin B12 deficiency Type 2 diabetes mellitus with obesity (CMS/HCC) SOCIAL HISTORY: Social History Tobacco Use Smoking status: Never Smokeless tobacco: Never Substance Use Topics Alcohol use: No ACTIVE MEDICATIONS: No outpatient medications have been marked as taking for the 01/10/25 encounter (Consult) with Pal Yang DPM. ALLERGIES: @ALL@ PHYSICAL EXAM: Height 1.499 m (59.02 ), weight 72.1 kg (159 lb). PODIATRIC EXAMINATION: GENERAL: Patient appears well nourished, with NAD. VASCULAR: Dorsalis pedis pulses are 1/4 bilaterally and Posterior tibial pulses are 0/4 bilaterally. Capillary filling time within normal limits the digits. No pallor on elevation or rubor on dependency. Positive hair growth. Many varicosities. +1 pitting edema bilaterally. Denies rest pain or claudication pain. NEUROLOGICAL: Sharp/dull sensation intact, protective sensation intact on [place]. Multiple peripheral neuropathies bilaterally. ORTHOPEDIC: Good muscle strength 5/5 of all flexors and extensors. Dorsi flexion of ankle ,10 degrees, plantar flexion WNL. No muscle atrophy. Arthritic changes of midfoot. Flexible flatfoot deformity. Rigid contractures to digits 2 through 5 without reducibility. DERMATOLOGICAL:.No masses or skin lesions noted. Normal skin temperature, normal skin turgor. Nailsare elongated dystrophic discolored x 10 with somewhat debris BIOMECHANICS: STJ ROM wnl, MTJ ROM wnl, 1st MPJ ROM wnl. IMPRESSION: 1. 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 Pain in both feet 3. Arthritis of both feet 4. Hammertoes of both feet 5. Dermatophytosis, nail PLAN: Pt was seen and examined, history reviewed. Patient educated on the importance of good pedal hygiene and tight blood glucose control. Patient encouraged to maintain a healthy lifestyle with a well-balanced diet. Patient should never go barefoot and wear supportive shoe gear. Patient should aim for A1c less than 7% every month. Continue with regular appointments with PMD or process equipment operator for tight medical management Patient with symptoms of arthritic changes in the pedal joints. Patient showed good understanding of etiology of arthritis. Patient is aware that conservative options include padding, over the counter products, orthotics, and shoes. Patient aware that they are other treatments available such as oral anti- inflammatories, injections, and steroid dose packs. Patient understands that these measures are conservative measures to help handle the osteoarthritic flares. Patient found to have contracted and hammered digits of bilateral forefoot. Due to patients currentage and activity level, will continue with conservative management of these deformities. There are devices will help reduce chance of irritation, pressure points, blisters, and/or infection. Nail debridement performed to nails 1-5 bilateral as nails were described to be causing pain and difficulty for walking while in shoegear at their previous length. They were debrided in thickness andlength, with no incident. Clinical evidence of mycosis is documented which required active treatment. Patient expressed immediate relief. Patient is to RTC in 9 weeks Pal Yang DPM cc: Gabriella Aadmson MD documented in this encounter Plan of Treatment Upcoming Encounters Date Type Department Care Team (Late st Contact Info) Description 02/10/2025 1:[address] [facility] [address] [place] [address] 02/10/2025 2:15 PM EDT Appointment [facility] [address] [place] [address] 02/17/2025 10:[address] [facility] [address] [place] [address] Roberto Cannon DO [address] [facility] [address] [place] [address] 04/14/2025 3:00 PM EDT Office Visit Orthopedic Surgery - [place] [address] [phone] Pal Yang, JIM [address] [address] 07/11/2025 1:00 PM EDT Office Visit Internal Medicine - [place] [address] [phone] Gabriella Adamson MD [address] [phone] documented as of this encounter Visit Diagnoses Diagnosis Poorly controlled type 2 diabetes mellitus with neuropathy ([facility])- Primary Pain in both feet Arthritis of both feet Hammertoes of both feet Dermatophytosis, nail Dermatophytosis of nail documented in this encounter Orders Outpatient Referral Count Last Ordered Date Fir st Ordered Date AMB REFERRAL TO PODIATRY 1 01/10/2025 documented in this encounter Care Teams Canned Food Reconditioning Inspector Relationship Specialty Start Date End Date Gabriella Adamson MD [address] [phone] PCP - General Internal Medicine 09/23/24 documented as of this encounter
--- OUTSIDE RECORDS SUMMARY | 2025-01-22 11:22 | XMS_ITS | Encounter Summary ---
Author Organization [facility] Address [address] [place] [address] Care Team Providers Care Inpatient Coder Name Role Phone Gabriella Adamson MD Primary Care Provider [phone] Reason for Visit * Reason Comments Leg Pain Encounter Details Date Type Department Care Team (Late st Contact Info) Description 01/18/2025 2:39 PM EDT - 01/18/2025 5:34 PM EDT Emergency [facility] Emergency [address] [place] [address] Oj Mayo MD [address] [place] [address] Pain (Primary Dx); Left leg pain Discharge Disposition: Home or Self Care Social History Tobacco Use Types Packs/Day Years [...] Sign Reading Time Taken Comments Blood Pressure 119/63 01/18/2025 4:44 PM EDT Pulse 81 01/18/2025 4:44 PM EDT Temperature 36.9 ??C (98.4 ??F) 01/18/2025 4:44 PM ED T Respiratory Rate 18 01/18/2025 4:44 PM EDT Oxygen Saturation 96% 01/18/2025 4:44 PM EDT Inhaled Oxygen Concentration - - Weight 74.8 kg (165 lb) 01/18/2025 1:20 PM EDT Height 149.9 cm (4' 11 ) 01/18/2025 1:20 PM EDT Body Mass Index 33.33 01/18/2025 1:20 PM EDT documented in this encounter Discharge Instructions * Discharge Instructions* Oj Mayo MD - 01/18/2025 5:26 PM EDT - Your lab work and imaging are reassuring - I recommend 650 mg of acetaminophen (Tylenol) every 4-6 hours for pain. You may use the Voltaren as well 4 times a day for your pain. - Follow-up with your primary care doctor soon as possible for reevaluation. If any new or concerning symptoms develop please return to the ER. * Attachments The following attachments cannot be sent through Care Everywhere. * Leg Pain (Setswana) documented in this encounter Medications at Time of Discharge albuterol HFA (PROAIR HFA ; PROVENTIL HFA ; VENTOLIN HFA) 90 mcg/actuation inhaler INHALE 2 PUFFS INTO THE LUNGS EVERY 6 HOURS NEEDED FOR COUGH OR WHEEZING 07/29/2019 amLODIPine (NORVASC) 2.5 mg tablet TAKE 1 TABLET BY MOUTH DAILY 12/14/2023 ammonium lactate (AmLactin) 12 % lotion Apply topically if needed for dry skin. 400 g 2 01/10/2025 benzonatate (TESSALON) 100 mg capsule Take 1 Capsule by mouth 3 times daily as needed for Cough for up to 7 days. - Oral blood sugar diagnostic (FreeStyle Lite Strips) test strip Use 1 strip every day 3 times a day,subcutaneou s 07/08/2022 blood-glucose meter kit Use to check finger stick blood sugar three times a day 07/08/2022 buPROPion XL (WELLBUTRIN XL) 300 mg 24 hr tablet Take 1 Tablet by mouth every morning. 09/18/2023 cetirizine (ZyrTEC) 10 mg tablet 07/06/2022 cholecalciferol (VITAMIN D-3) 25 mcg (1,000 unit) capsule Take 1 capsule by mouth daily. cyanocobalamin (VITAMIN B-12) 1,000 mcg tablet TAKE 1 TABLET BY MOUTH DAILY 08/25/2021 docusate sodium (COLACE) 100 mg capsule Take 1 Capsule by mouth 2 times daily. 09/15/2023 fluticasone propion-salmeter oL (Advair HFA) 230-21 mcg/actuation inhaler INHALE 2 PUFFS BY MOUTH TWICE DAILY 06/14/2022 fluticasone propionate (FLONASE) 50 mcg/actuation nasal spray SHAKE LIQUID AND USE 2 SPRAYS IN EACH NOSTRIL DAILY 11/09/2018 insulin lispro 100 unit/mL injection Inject into the skin 3 times daily (before meals). levothyroxine (SYNTHROID, LEVOTHROID) 88 mcg tablet Take 1 Tablet by mouth daily. - Oral linaCLOtide (Linzess) 145 mcg capsule Take 1 Capsule by mouth daily. 09/15/2023 lisinopriL (PRINIVIL,ZESTRI L) 30 mg tablet Take 1 Tablet by mouth daily. 10/20/2023 montelukast (SINGULAIR) 10 mg tablet 07/06/2022 ondansetron (ZOFRAN) 4 mg tablet TAKE 1 TABLET BY MOUTH EVERY 12 HOURS NEEDED FOR NAUSEA 11/19/2021 pravastatin (PRAVACHOL) 20 mg tablet TAKE 1 TABLET BY MOUTH DAILY 06/02/2022 predniSONE (DELTASONE) 20 mg tablet 2 tab for 3 days and then 1 tab daily 05/08/2024 umeclidinium (Incruse Ellipta) 62.5 mcg/actuation inhalation INHALE 1 PUFF DAILY. 07/13/2017 VITAMIN A ORAL Take by mouth. documented as of this encounter Discharge Disposition Disposition Code Departure Means Destination Comment s Home or Self Care documented in this encounter Progress Notes * Lindsey Torres RN - 01/18/2025 1:17 PM EDT Patient reports left leg pain x 5 days described as shooting going up leg. Pain starts in ankle andgoes up. Reports hx of chronic low back pain and neuropathy but states it feels different. Denies any swelling, redness, or warmth. Starts pain worse when walking. Denies hx of DVTs and clots * Oj Mayo MD - 01/18/2025 1:14 PM EDT Emergency Medicine Note Patient Name: Jenelle Tate Initial Evaluation: 01/18/2025 : 1960 Patient's PCP: Gabriella Adamson MD Emergency Physician: Oj Mayo MD History of Present Illness Chief Complaint: Chief Complaint Patient presents with ??? Leg Pain HPI: This is a 64-year-old female presenting with left lower extremity pain. She reports a 5 to 6-day history of pain starting in her left leg shooting up towards her hip. She reports 2 out of 10 pain at rest, 7 out of 10 pain when walking. She reports she is been using ibuprofen with some improvement in pain. She denies numbness or paresthesias. She denies any weakness. She denies any trauma. She reports that this pain is so severe causes chills . She denies any skin changes or bruising. She denies any fevers. She has no abdominal pain. She reports chronic back pain she gets right sided sciatica, but does not currently have this. ROS: I have performed a ROS with the pertinent positives and negatives documented in the history ofpresent illness. Previous History Past Medical History: Diagnosis Date ??? Allergic rhinitis 03/07/2018 DX:Allergic rhinitis ??? Change in stool DX:Change in stool ??? Constipation DX:Constipation ??? COPD (chronic obstructive pulmonary disease) ([facility]) 06/21/2018 DX:COPD (chronic obstructive pulmonary disease) ([facility]) ??? Depression 03/07/2018 DX:Depression ??? Diabetes mellitus type 2 in obese 03/07/2018 DX:Diabetes mellitus type 2 in obese ??? Diabetic gastroparesis ([facility]) 11/18/2020 DX:Diabetic gastroparesis ([facility]); COMMENT: 11/18/2020: EGD showed solid food in stomach after overnight fast. ??? Hyperlipidemia 03/07/2018 DX:Hyperlipidemia ??? Hypertension 03/07/2018 DX:Hypertension ??? Hypothyroid 03/07/2018 DX:Hypothyroid ??? Iron deficiency anemia 03/07/2018 DX:Iron deficiency anemia ??? Irritable bowel syndrome with constipation 03/07/2018 DX:Irritable bowel syndrome with constipation ??? Migraine 03/07/2018 DX:Migraine ??? Moderate persistent asthma 09/13/2017 DX:Moderate persistent asthma ??? VALARIE (obstructive sleep apnea) 09/13/2017 DX:VALARIE (obstructive sleep apnea) ??? Rectal bleeding DX:Rectal bleeding ??? Supplemental oxygen dependent 03/07/2018 DX:Supplemental oxygen dependent ??? Thyroid nodule 03/07/2018 DX:Thyroid nodule ??? Upset stomach DX:Upset stomach ??? Vitamin B12 deficiency 05/30/2019 DX:Vitamin B12 deficiency Past Surgical History: Procedure Laterality Date ??? COLONOSCOPY 06/18/2015 PROCEDURE: HISTORICAL COLONOSCOPY; COMMENT: [email or web address]. ??? UPPER GASTROINTESTINAL ENDOSCOPY 06/18/2015 PROCEDURE: [place] UPPER GI ENDOSCOPY PERFORMED; COMMENT: [email or web address]. ??? UPPER GASTROINTESTINAL ENDOSCOPY 11/18/2020 PROCEDURE: IA UPPER GI ENDOSCOPY PERFORMED; COMMENT: Food in stomach suggesting gastroparesis; otherwise normal; not on PPI treatment. ??? WRIST SURGERY PROCEDURE: HISTORICAL WRIST SURGERY Social History Tobacco Use ??? Smoking status: Never ??? Smokeless tobacco: Never Substance Use Topics ??? Alcohol use: No ??? Drug use: No Family History Problem Relation Name Age of Onset ??? Diabetes Mother osteoporosis, ??? Heart attack Father 60.00 ??? Breast cancer Neg Hx ??? Ovarian cancer Neg Hx is allergic to penicillins. No current facility-administered medications on file prior to encounter. Current Outpatient Medications on File Prior to Encounter Medication Sig Dispense Refill ??? albuterol HFA (PROAIR HFA ; PROVENTIL HFA ; VENTOLIN HFA) 90 mcg/actuation inhaler INHALE 2 PUFFS INTO THE LUNGS EVERY 6 HOURS NEEDED FOR COUGH OR WHEEZING ??? amLODIPine (NORVASC) 2.5 mg tablet TAKE 1 TABLET BY MOUTH DAILY ??? ammonium lactate (AmLactin) 12 % lotion Apply topically if needed for dry skin. 400 g 2 ??? benzonatate (TESSALON) 100 mg capsule Take 1 Capsule by mouth 3 times daily as needed for Coughfor up to 7 days. - Oral ??? blood sugar diagnostic (FreeStyle Lite Strips) test strip Use 1 strip every day 3 times a day,subcutaneous ??? blood-glucose meter kit Use to check finger stick blood sugar three times a day ??? buPROPion XL (WELLBUTRIN XL) 300 mg 24 hr tablet Take 1 Tablet by mouth every morning. ??? cetirizine (ZyrTEC) 10 mg tablet ??? cholecalciferol (VITAMIN D-3) 25 mcg (1,000 unit) capsule Take 1 capsule by mouth daily. ??? cyanocobalamin (VITAMIN B-12) 1,000 mcg tablet TAKE 1 TABLET BY MOUTH DAILY ??? docusate sodium (COLACE) 100 mg capsule Take 1 Capsule by mouth 2 times daily. ??? fluticasone propion-salmeteroL (Advair HFA) 230-21 mcg/actuation inhaler INHALE 2 PUFFS BY MOUTH TWICE DAILY ??? fluticasone propionate (FLONASE) 50 mcg/actuation nasal spray SHAKE LIQUID AND USE 2 SPRAYS IN EACH NOSTRIL DAILY ??? insulin lispro 100 unit/mL injection Inject into the skin 3 times daily (before meals). ??? levothyroxine (SYNTHROID, LEVOTHROID) 88 mcg tablet Take 1 Tablet by mouth daily. - Oral ??? linaCLOtide (Linzess) 145 mcg capsule Take 1 Capsule by mouth daily. ??? lisinopriL (PRINIVIL,ZESTRIL) 30 mg tablet Take 1 Tablet by mouth daily. ??? montelukast (SINGULAIR) 10 mg tablet ??? ondansetron (ZOFRAN) 4 mg tablet TAKE 1 TABLET BY MOUTH EVERY 12 HOURS NEEDED FOR NAUSEA ??? pravastatin (PRAVACHOL) 20 mg tablet TAKE 1 TABLET BY MOUTH DAILY ??? predniSONE (DELTASONE) 20 mg tablet 2 tab for 3 days and then 1 tab daily ??? umeclidinium (Incruse Ellipta) 62.5 mcg/actuation inhalation INHALE 1 PUFF DAILY. ??? VITAMIN A ORAL Take by mouth. Physical Exam ED Triage Vitals [01/18/25 1320] Temp Heart Rate Resp BP 37 ??C (98.6 ??F) 102 16 139/68 SpO2 Temp Source Heart Rate Source Patient Position 98 % Oral Monitor Sitting BP Location FiO2 (%) Right arm;Upper -- General: Well-appearing, well nourished, in no acute distress HEENT: PERRL, EOMI, external ears and nose appear unremarkable, airway is patent Neck: Supple, full range of motion Chest: Clear to auscultation; no evidence of respiratory distress Circulatory: RRR, extremities well perfused Abdomen: Non-distended, Non-Tender Extremities: Normal ROM, No edema. There is normal range of motion at the left hip, left knee and left ankle. There are no skin changes left lower extremity. Patient has no bony tenderness of the left lower extremity. I do not appreciate any tenderness at all throughout the musculature of the left lower extremity. Patient has 2+ DP and PT pulses in the left foot/ankle. Skin: Warm and dry Neuro: Alert and oriented, no focal deficits Results Labs Reviewed COMPREHENSIVE METABOLIC PANEL - Abnormal Result Value Sodium 140 Potassium 4.2 Chloride 109 CO2 25 Anion Gap 6 Glucose 152 (*) BUN 19 Creatinine 0.88 eGFR 73 BUN/Creatinine Ratio 21.6 Calcium 9.3 AST (SGOT) 19 ALT (SGPT) 17 Alkaline Phosphatase 152 (*) Total Protein 6.9 Albumin 3.9 Total Bilirubin 0.3 CBC WITH AUTO DIFFERENTIAL - Abnormal WBC 7.0 RBC 4.70 Hemoglobin 12.0 Hematocrit 38.7 MCV 82.0 MCH 25.4 (*) MCHC 31.0 (*) RDW 15.2 (*) Platelets 225 MPV 10.6 NRBC 0.0 NRBC Absolute 0.00 Neutrophils Relative 56.2 Lymphocytes Relative 32.6 Monocytes Relative 7.0 Eosinophils Relative 2.7 Basophils Relative 1.4 Immature Granulocytes Relative 0.1 Neutrophils Absolute 3.95 Lymphocytes Absolute 2.29 Monocytes Absolute 0.49 Eosinophils Absolute 0.19 Basophils Absolute 0.10 Immature Granulocytes Absolute 0.01 PROTHROMBIN TIME WITH INR - Normal Protime 11.0 INR 0.9 CBC AND DIFFERENTIAL Narrative: The following orders were created for panel order CBC and differential. Procedure Abnormality Status --------- ------ CBC auto differential[[id number]] Abnormal Final result Please view results for these tests on the individual orders. Abnormal Labs Reviewed COMPREHENSIVE METABOLIC PANEL - Abnormal; Notable for the following components: Result Value Glucose 152 (*) Alkaline Phosphatase 152 (*) All other components within normal limits CBC WITH AUTO DIFFERENTIAL - Abnormal; Notable for the following components: MCH 25.4 (*) MCHC 31.0 (*) RDW 15.2 (*) All other components within normal limits Vascular US Duplex Lower Extremity Venous Left Final Result Impression: No evidence of deep vein thrombosis in the left femoral-popliteal venous segment. Mark JEREZ ([id number]) -------- FINAL REPORT -------- Dictated By: Maricarmen Ahuja Dictated Date: 01/18/2025 14:42 ET Assigned Physician: Maricarmen Ahuja Reviewed and Electronically Signed By: Maricarmen Ahuja Signed Date: 01/18/2025 14:43 ET Workstation ID: [id number] Transcribed By: Self Edit Transcribed Date: 01/18/2025 14:42 ET XR Tibia Fibula 2 Views Left (Results Pending) XR Femur 2+ Views Left (Results Pending) I have discussed the incidental/abnormal imaging and/or lab abnormalities with the patient and haveinstructed them the need for further evaluation and workup with their primary care doctor. I have provided the patient with a paper copy of the abnormality. The laboratory results, imaging results and other diagnostic exam results were reviewed in the EMR. EKG Interpretation Critical Care Time None Medical Decision Making DDx: DVT, tendinitis, muscle strain, 64-year-old female presents with atraumatic left lower extremity pain. She is neurovascularly intact. No skin changes suggestive of cellulitis. She seems to have full range of motion of all the joints. She does not appear to have any bony tenderness. Plan for labs, x-rays, DVT study. Patient's lab work and imaging are nonactionable. Patient received Voltaren gel here, I have recommended follow-up with PCP. Medications diclofenac (VOLTAREN) 1 % topical gel 4 g (has no administration in time range) ED Course as of 01/18/25 1726 Sat Jan 18, 2025 1539 Lab work reviewed. No anemia, JUDAH, lethal electrolyte abnormality or life- threatening's function of glucose metabolism. DVT study reviewed, no evidence of DVT. [PC] ED Course User Index [PC] Oj Mayo MD Clinical Impressions as of 01/18/25 1726 Pain Left leg pain Procedures Procedures Diagnosis 1. Pain Vascular US Duplex Lower Extremity Venous Left Vascular US Duplex Lower Extremity Venous Left Disposition Data Unavailable ED Prescriptions None Physician Attestation Oj Mayo MD 01/18/25 1542 Oj Mayo MD 01/18/25 1726 documented in this encounter Plan of Treatment Upcoming Encounters Date Type Department Care Team (Late st Contact Info) Description 02/10/2025 1:30 PM EDT Appointment [facility] Bone Density [address] [place] [address] 02/10/2025 2:15 PM EDT Appointment [facility] [address] [place] [address] 02/17/2025 10:00 AM EDT Appointment [facility] Endoscopy [address] [place] [address] Roberto Cannon DO [address] [address] 04/14/2025 3:00 PM EDT Office Visit Orthopedic Surgery - [place] [address] [phone] Pal Yang, JIM [address] [address] 07/11/2025 1:00 PM EDT Office Visit Internal Medicine - [place] [address] [phone] Gabriella Adamson MD [address] [phone] documented as of this encounter Procedures Procedure Name Priority Date/Time Associated Diagnosis Comments XR TIBIA FIBULA 2 VIEWS LEFT STAT 01/18/2025 4:19 PM EDT XR FEMUR 2+ VIEWS LEFT STAT 4:19 PM EDT VAS US DUPLEX LOWER EXT VENOUS LEFT STAT 01/18/2025 2:52 PM EDT Pain CBC WITH AUTO DIFFERENTIAL STAT 01/18/2025 1:37 PM EDT PROTHROMBIN TIME WITH INR STAT 01/18/2025 1:37 PM EDT CBC AND DIFFERENTIAL STAT 01/18/2025 1:37 PM EDT COMPREHENSIVE METABOLIC PANEL STAT 01/18/2025 1:37 PM EDT documented in this encounter Results * XR Femur 2+ Views Left (01/18/2025 4:19 PM EDT) Anatomical Region Laterality Modality Lower Extremities, Femur Left Radiogr aphic Imaging 01/19/2025 9:59 AM EDT Impressions 01/19/2025 10:00 AM EDT Impression: No significant abnormality of the left femur. Teletammy JEREZ ([id number]) -------- FINAL REPORT -------- Dictated By: Maricarmen Ahuja Dictated Date: 01/19/2025 09:59 ET Assigned Physician: Maricarmen Ahuja Reviewed and Electronically Signed By: Maricarmen Ahuja Signed Date: 01/19/2025 10:00 ET Workstation ID: [id number] Transcribed By: Self Edit Transcribed Date: 01/19/2025 09:59 ET Narrative 01/19/2025 10:00 AM EDT History: Left lower extremity pain for 5 to 6 days. No trauma. Findings: AP and lateral views of the left femur. The osseous structures are intact and the articular spaces appear well maintained. The overlying soft tissues are unremarkable. Procedure Note Maricarmen Ahuja MD - 01/19/2025 History: Left lower extremity pain for 5 to 6 days. No trauma. Findings: AP and lateral views of the left femur. The osseous structures are intactand the articular spaces appear well maintained. The overlying softtissues are unremarkable. IMPRESSION: Impression: No significant abnormality of the left femur. Telerad SOLITARIO ([id number]) -------- FINAL REPORT -------- Dictated By: Maricarmen Ahuja Dictated Date: 01/19/2025 09:59 ET Assigned Physician: Maricarmen Ahuja Reviewed and Electronically Signed By: Maricarmen Ahuja Signed Date: 01/19/2025 10:00 ET Workstation ID: [id number] Transcribed By: Self Edit Transcribed Date: 01/19/2025 09:59 ET us Oj Mayo MD IMG XR PROCEDURES Final Resu lt * XR Tibia Fibula 2 Views Left (01/18/2025 4:19 PM EDT) Anatomical Region Laterality Modality Lower Extremities, Lower Leg Left Rad iographic Imaging 01/19/2025 10:0 0 AM EDT Impressions 01/19/2025 10:01 AM EDT Impression: No significant abnormality identified. Telerad PA ([id number]) -------- FINAL REPORT -------- Dictated By: Maricarmen Ahuja Dictated Date: 01/19/2025 10:00 ET Assigned Physician: Maricarmen Ahuja Reviewed and Electronically Signed By: Maricarmen Ahuja Signed Date: 01/19/2025 10:01 ET Workstation ID: [id number] Transcribed By: Self Edit Transcribed Date: 01/19/2025 10:00 ET Narrative 01/19/2025 10:01 AM EDT History: Left lower extremity pain. No trauma. Findings: AP and lateral views of the left tib-fib. The osseous structures are intact and the articular spaces are well maintained. The overlying soft tissues are unremarkable. Procedure Note Maricarmen Ahuja MD - 01/19/2025 History: Left lower extremity pain. No trauma. Findings: AP and lateral views of the left tib-fib. The osseous structures areintact and the articular spaces are well maintained. The overlying softtissues are unremarkable. IMPRESSION: Impression: No significant abnormality identified. Telerad PA ([id number]) -------- FINAL REPORT -------- Dictated By: Maricarmen Ahuja Dictated Date: 01/19/2025 10:00 ET Assigned Physician: Maricarmen Ahuja Reviewed and Electronically Signed By: Maricarmen Ahuja Signed Date: 01/19/2025 10:01 ET Workstation ID: [id number] Transcribed By: Self Edit Transcribed Date: 01/19/2025 10:00 ET us Oj Mayo MD IMG XR PROCEDURES Final Resu lt * Vascular US Duplex Lower Extremity Venous Left (01/18/2025 2:52 PM EDT) Anatomical Region Laterality Modality Vascular, Abdomen Ultrasound 01/18/2025 2:42 PM EDT Impressions 01/18/2025 2:43 PM EDT Impression: No evidence of deep vein thrombosis in the left femoral-popliteal venous segment. Mark JEREZ ([id number]) -------- FINAL REPORT -------- Dictated By: Maricarmen Ahuja Dictated Date: 01/18/2025 14:42 ET Assigned Physician: Maricarmen Ahuja Reviewed and Electronically Signed By: Maricarmen Ahuja Signed Date: 01/18/2025 14:43 ET Workstation ID: [id number] Transcribed By: Self Edit Transcribed Date: 01/18/2025 14:42 ET Narrative 01/18/2025 2:43 PM EDT History: Left lower extremity pain. Findings: Duplex and color Doppler imaging of the left lower extremity was performed from the inguinal ligament to the popliteal fossa. The common femoral, femoral and popliteal veins are patent and compress completely. Normal spontaneous and phasic venous flow is demonstrated with Doppler. There is normal flow augmentation with calf compression. The deep calf veins, as visualized, are compressible Procedure Note Maricarmen Ahuja MD - 01/18/2025 History: Left lower extremity pain. Findings: Duplex and color Doppler imaging of the left lower extremity was performedfrom the inguinal ligament to the popliteal fossa. The common femoral,femoral and popliteal veins are patent and compress completely. Normalspontaneous and phasic venous flow is demonstrated with Doppler. There isnormal flow augmentation with calf compression. The deep calf veins, as visualized, are compressible IMPRESSION: Impression: No evidence of deep vein thrombosis in the leftfemoral-popliteal venous segment. Telerad PA ([id number]) -------- FINAL REPORT -------- Dictated By: Maricarmen Ahuja Dictated Date: 01/18/2025 14:42 ET Assigned Physician: Maricarmen Ahuja Reviewed and Electronically Signed By: Maricarmen Ahuja Signed Date: 01/18/2025 14:43 ET Workstation ID: [id number] Transcribed By: Self Edit Transcribed Date: 01/18/2025 14:42 ET us Oj Mayo MD CV VASCULAR PROCEDURES Final Result * Prothrombin time with INR (01/18/2025 1:37 PM EDT) Pathologist [facility] Protime 11.0 10.6 - 13.9 sec LAB COAGULATION METHOD 01/18/2025 2:59 PM EDT [facility] INR 0.9 LAB COAGULATION METHOD 01/18/2025 2:59 PM EDT [facility] Blood Venous blood specimen / Unknown Venipuncture / Unknown 01/18/2025 1:37 PM EDT 01/18/2025 2:50 PM EDT us Oj Mayo MD LAB BLOOD ORDERABLES Final R esult [facility] [address] [place] [address], [place] [phone] * (ABNORMAL) CBC auto differential (01/18/2025 1:37 PM EDT) WBC 7.0 4.8 - 10.8 K/mcL LAB HEMETOLOGY METHOD 01/18/2025 2:56 PM EDT [facility] RBC 4.70 3.80 - 4.80 M/mcL LAB HEMETOLOGY METHOD 01/18/2025 2:56 PM EDT [facility] Hemoglobin 12.0 11.5 - 16.0 g/dL LAB HEMETOLOGY METHOD 01/18/2025 2:56 PM EDT [facility] Hematocrit 38.7 35.0 - 47.0 % LAB HEMETOLOGY METHOD 01/18/2025 2:56 PM EDT [facility] MCV 82.0 79.0 - 98.0 FL LAB HEMETOLOGY METHOD 01/18/2025 2:56 PM EDT [facility] MCH 25.4(L) 27.0 - 32.0 pcg LAB HEMETOLOGY METHOD 01/18/2025 2:56 PM EDT [facility] MCHC 31.0(L) 32.0 - 37.0 g/dL LAB HEMETOLOGY METHOD [facility] RDW 15.2(H) 11.0 - 15.0 % LAB HEMETOLOGY METHOD 01/18[facility]2025 2:[facility] Platelets 225 130 - 400 K/mcL LAB HEMETOLOGY METHOD 01/18/2025 2:56 PM EDT [facility] MPV 10.6 7.0 - 11.0 FL LAB HEMETOLOGY METHOD 01/18[facility]2025 2:[facility] NRBC 0.0 <1.0 % LAB HEMETOLOGY METHOD 01/18/2025 2:[address] [facility] NRBC Absolute 0.00 <0.10 K/mcL LAB HEMETOLOGY METHOD 01/18/2025 2:56 PM EDT [facility] Neutrophils Relative 56.2 % LAB HEMETOLOGY METHOD 01/18/2025 2:56 PM EDT [facility] Lymphocytes Relative 32.6 % LAB HEMETOLOGY METHOD 01/18/2025 2:56 PM EDT [facility] Monocytes Relative 7.0 % LAB HEMETOLOGY METHOD 01/18/2025 2:56 PM EDT [facility] Eosinophils Relative 2.7 % LAB HEMETOLOGY METHOD 01/18/2025 2:56 PM EDT [facility] Basophils Relative 1.4 % LAB HEMETOLOGY METHOD 01/18/2025 2:56 PM EDT [facility] Immature Granulocytes Relative 0.1 % LAB HEMETOLOGY METHOD 01/18/2025 2:56 PM EDT [facility] Neutrophils Absolute 3.95 1.50 - 7.00 K/mcL LAB HEMETOLOGY METHOD 01/18/2025 2:56 PM EDT [facility] Lymphocytes Absolute 2.29 1.00 - 5.00 K/mcL LAB HEMETOLOGY METHOD 01/18/2025 2:56 PM EDT [facility] Monocytes Absolute 0.49 0.20 - 1.00 K/mcL LAB HEMETOLOGY METHOD 01/18/2025 2:56 PM EDT [facility] Eosinophils Absolute 0.19 0.00 - 0.50 K/mcL LAB HEMETOLOGY METHOD 01/18/2025 2:56 PM EDT [facility] Basophils Absolute 0.10 0.00 - 0.20 K/mcL LAB HEMETOLOGY METHOD 01/18/2025 2:56 PM EDT [facility] Immature Granulocytes Absolute 0.01 0.00 - 0.03 K/mcL LAB HEMETOLOGY METHOD 01/18/2025 2:56 PM EDT [facility] Blood Venous blood specimen / Unknown Venipuncture / Unknown 01/18/2025 1:37 PM EDT 01/18/2025 2:50 PM EDT us Oj Mayo MD LAB BLOOD ORDERABLES Final R esult [facility] [address] [place] [address], * (ABNORMAL) Comprehensive metabolic panel (01/18/2025 1:37 PM EDT) [facility] Signature Sodium 140 133 - 145 mmol/L LAB CHEMISTRY METHOD 01/18/2025 3:[address] [facility] Potassium 4.2 3.5 - 5.5 mmol/L LAB CHEMISTRY METHOD 01/18/2025 3:[address] [facility] Chloride 109 96 - 110 mmol/L LAB CHEMISTRY METHOD 01/18/2025 3:[address] [facility] CO2 25 21 - 32 mmol/L LAB CHEMISTRY METHOD 01/18/2025 3:[address] [facility] Anion Gap 6 3 - 11 LAB CHEMISTRY METHOD 01/18/2025 3:[address] [facility] Glucose 152(H) 70 - 100 mg/dL LAB CHEMISTRY METHOD 01/18/2025 3:[address] [facility] BUN 19 5 - 25 mg/dL LAB CHEMISTRY METHOD 01/18/2025 3:[address] [facility] Creatinine 0.88 0.50 - 1.10 mg/dL LAB CHEMISTRY METHOD 01/18/2025 3:[address] [facility] eGFR 73 >=60 mL/min/1. 73m2 LAB CHEMISTRY METHOD 01/18/2025 3:[address] [facility] Comment:Calculation based on the??Chronic Kidney Disease Epidemiology Collaboration (CKD-EPI) equation refit??without adjustment for race. BUN/Creatinine Ratio 21.6 LAB CHEMISTRY METHOD 01/18/2025 3:[address] [facility] Calcium 9.3 8.5 - 10.5 mg/dL LAB CHEMISTRY METHOD 01/18/2025 3:[address] [facility] AST (SGOT) 19 10 - 42 unit/L LAB CHEMISTRY METHOD 01/18/2025 3:[address] [facility] ALT (SGPT) 17 10 - 60 unit/L LAB CHEMISTRY METHOD 01/18/2025 3:33 PM EDT [facility] Alkaline Phosphatase 152(H) 42 - 121 unit/L LAB CHEMISTRY METHOD 01/18/2025 3:33 PM EDT [facility] Total Protein 6.9 6.0 - 8.0 g/dL LAB CHEMISTRY METHOD 01/18/2025 3:33 PM EDT [facility] Albumin 3.9 3.2 - 5.0 g/dL LAB CHEMISTRY METHOD 01/18/2025 3:33 PM EDT [facility] Total Bilirubin 0.3 0.0 - 1.4 mg/dL LAB CHEMISTRY METHOD 01/18/2025 3:33 PM EDT [facility] Blood Venous blood specimen / Unknown Venipuncture / Unknown 01/18/2025 1:37 PM EDT 01/18/2025 2:50 PM EDT us Oj Mayo MD LAB BLOOD ORDERABLES Final R esult [facility] [address] [place] [address], [place] [phone] documented in this encounter Visit Diagnoses Diagnosis Pain- Primary Generalized pain Left leg pain Pain in soft tissues of limb documented in this encounter Administered Medications Inactive Administered Medications - up to 3 most recent administrations Medication Order MAR Action Action Date Dose Rate Site diclofenac (VOLTAREN) 1 % topical gel 4 g 4 g, Topical, 4 times daily, First dose on 01/18/25 at 1700 Given 01/18/2025 4:47 PM EDT 4 g documented in this encounter Active and Recently Administered Medications Times are shown in EDT. Scheduled Medication Order 01/16/2025 01/17/2025 01/18/2025 diclofenac (VOLTAREN) 1 % topical gel 4 g 4 g, Topical, 4 times daily, First dose on 01/18/25 at 1700 1647 (Given - Provid er: Sima Hill RN) documented in this encounter Care Teams Inpatient Coder Relationship Specialty Start Date End Date Gabriella Adamson MD [address] [phone] PCP - General Internal Medicine 09/23/24 documented as of this encounter
--- OUTSIDE RECORDS SUMMARY | 2025-01-22 11:22 | XMS_ITS | Clinical Summary ---
Author Organization [address] [place] [address] Address [address] [place] [address] Phone Care Team Providers Care Barkeep Name Role Phone Gabriella Adamson MD Primary Care Provider [phone] Allergies Active Allergy Reactions Criticality Noted Date Comments Penicillins 09/12/2017 Medications fluticasone propion-salmete roL (Advair HFA) 230-21 mcg/actuation inhaler INHALE 2 PUFFS BY MOUTH TWICE DAILY 2 Active albuterol HFA (PROAIR HFA ; PROVENTIL HFA ; VENTOLIN HFA) 90 mcg/actuation inhaler INHALE 2 PUFFS INTO THE LUNGS EVERY 6 HOURS NEEDED FOR COUGH OR WHEEZING 9 Active amLODIPine (NORVASC) 2.5 mg tablet TAKE 1 TABLET BY MOUTH DAILY 4 Active buPROPion XL (WELLBUTRIN XL) 300 mg 24 hr tablet Take 1 Tablet by mouth every morning. 3 Active cetirizine (ZyrTEC) 10 mg tablet 2 Active docusate sodium (COLACE) 100 mg capsule Take 1 Capsule by mouth 2 times daily. 3 Active fluticasone propionate (FLONASE) 50 mcg/actuation nasal spray SHAKE LIQUID AND USE 2 SPRAYS IN EACH NOSTRIL DAILY 9 Active blood sugar diagnostic (FreeStyle Lite Strips) test strip Use 1 strip every day 3 times a day,subcutaneo 2 Active blood-glucose meter kit Use to check finger stick blood sugar three times a day 2 Active insulin lispro 100 unit/mL injection Inject into the skin 3 times daily (before meals). Active linaCLOtide (Linzess) 145 mcg capsule Take 1 Capsule by mouth daily. 3 Active lisinopriL (PRINIVIL,ZESTR IL) 30 mg tablet Take 1 Tablet by mouth daily. 3 Active montelukast (SINGULAIR) 10 mg tablet 2 Active ondansetron (ZOFRAN) 4 mg tablet TAKE 1 TABLET BY MOUTH EVERY 12 HOURS NEEDED FOR NAUSEA 2 Active pravastatin (PRAVACHOL) 20 mg tablet TAKE 1 TABLET BY MOUTH DAILY 2 Active predniSONE (DELTASONE) 20 mg tablet 2 tab for 3 days and then 1 tab daily 4 Active umeclidinium (Incruse Ellipta) 62.5 mcg/actuation inhalation INHALE 1 PUFF DAILY. 7 Active VITAMIN A ORAL Take by mouth. Active cyanocobalamin (VITAMIN B-12) 1,000 mcg tablet TAKE 1 TABLET BY MOUTH DAILY 1 Active cholecalciferol (VITAMIN D-3) 25 mcg (1,000 unit) capsule Take 1 capsule by mouth daily. Active levothyroxine (SYNTHROID, LEVOTHROID) 88 mcg tablet Take 1 Tablet by mouth daily. - Oral Active benzonatate (TESSALON) 100 mg capsule Take 1 Capsule by mouth 3 times daily as needed for Cough for up to 7 days. - Oral Active ammonium lactate (AmLactin) 12 % lotion Apply topically if needed for dry skin. 400 g 2 5 01/11/20 26 Active Active Problems Problem Noted Date Diagnosed Date Change in stool 08/22/2024 Rectal bleeding 08/22/2024 Upset stomach 08/22/2024 Abscess of chest 10/27/2021 Ovarian mass 10/27/2021 Pulmonary nodules 10/27/2021 Diabetic gastroparesis 11/18/2020 Overview (08/22/2024): 11/18/2020: EGD showed solid food in stomach after overnight fast. Vitamin B12 deficiency 05/30/2019 COPD (chronic obstructive pulmonary disease) Allergic rhinitis 03/07/2018 Depression 03/07/2018 Hyperlipidemia 03/07/2018 Hypertension 03/07/2018 Hypothyroid 03/07/2018 Iron deficiency anemia 03/07/2018 Irritable bowel syndrome with constipation 03/07 Migraine 03/07/2018 Thyroid nodule 03/07/2018 Type 2 diabetes mellitus with obesity 03/07/2018 Overview (08/22/2024): Manged by Dr. Constantino Looney Assessment & Plan (01/07/2025 9:52 AM EDT): Orders: Ambulatory referral to Podiatry; Future Moderate persistent asthma 09/13/2017 VALARIE (obstructive sleep apnea) 09/13/2017 Encounters Date Type Department Care Team Description 01/18/2025 2:39 PM EDT - 01/18/2025 5:34 PM EDT Emergency [facility] Emergency [address] [place] [phone] Oj Mayo MD Pain (Primary Dx); Left leg pain Discharge Disposition: Home or Self Care 01/10/2025 2:45 PM EDT Consult Orthopedic Surgery - [place] [address] [facility] [address] [place] [phone] Pal Yang DPM Poorly controlled type 2 diabetes mellitus with neuropathy (CMS/HCC) (Primary Dx); Pain in both feet; Arthritis of both feet; Hammertoes of both feet; Dermatophytosis, nail 01/07/2025 9:30 AM EDT Office Visit Internal Medicine - [place] 175 [facility] [address] [place] [phone] Gabriella Adamson MD Type 2 diabetes mellitus with obesity (CMS/HCC) (Primary Dx); Pain in both feet; Breast cancer screening by mammogram; Postmenopausal state; Chronic midline low back pain without sciatica; Encounter for subsequent annual wellness visit (AWV) in Medicare patient from Last 3 Months Immunizations Name Administration Dates Next Due Influenza trivalent, 0.5mL ( Fluzone High-dose) 65yo and older 08/21/2024 Influenza, Unspecified 08/14/2019 Tetanus Toxoid, Unspecified 08/05/2019 Surgical History Surgery Date Site/Laterality Comments COLONOSCOPY 06/18/2015 PROCEDURE: HISTORICAL COLONOSCOPY; COMMENT: [email or web address]. WRIST SURGERY PROCEDURE: HISTORICAL WRIST SURGERY UPPER GASTROINTESTINAL ENDOSCOPY 06/18/2015 PROCEDURE: SC UPPER GI ENDOSCOPY PERFORMED; COMMENT: normal@[email or web address]. UPPER GASTROINTESTINAL ENDOSCOPY 11/18/2020 PROCEDURE: SC UPPER GI ENDOSCOPY PERFORMED; COMMENT: Food in stomach suggesting gastroparesis; otherwise normal; not on PPI treatment. Medical History Medical History Date Comments Supplemental oxygen dependent 03/07/2018 DX :Supplemental oxygen dependent Moderate persistent asthma 09/13/2017 DX:Mo derate persistent asthma VALARIE (obstructive sleep apnea) 09/13/2017 DX :VALARIE (obstructive sleep apnea) Allergic rhinitis 03/07/2018 DX:Allergic rh initis Hypothyroid 03/07/2018 DX:Hypothyroid Diabetes mellitus type 2 in obese 03/07/2018 DX:Diabetes mellitus type 2 in obese Depression 03/07/2018 DX:Depression Hypertension 03/07/2018 DX:Hypertension Migraine 03/07/2018 DX:Migraine Hyperlipidemia 03/07/2018 DX:Hyperlipidemi a Irritable bowel syndrome wit h constipation 03/07/2018 DX:Irritable bowel syndrome with constipation Iron deficiency anemia 03/07/2018 DX:Iron d eficiency anemia Thyroid nodule 03/07/2018 DX:Thyroid nodul e COPD (chronic obstructive pu lmonary disease) ([facility]) 06/21/2018 DX:COPD (chronic obstructive pulmonary disease) ([facility]) Vitamin B12 deficiency 05/30/2019 DX:Vitami n B12 deficiency Diabetic gastroparesis ([facility]) 11/18/2020 DX:Diabetic gastroparesis ([facility]); COMMENT: 11/18/2020: EGD showed solid food in stomach after overnight fast. Change in stool DX:Change in sto ol Rectal bleeding DX:Rectal bleedi ng Upset stomach DX:Upset stomach Constipation DX:Constipation Family History Medical History Relation Name Comments Heart attack Father Diabetes Mother osteoporosis, Breast cancer Neg Hx Ovarian cancer Neg Hx Relation Name Status Comments Father Mother Alive Social History Tobacco Use Types Packs/Day Years [...] Orientation Straight 01/16/2025 1: 24 PM EDT Obstetrics History Last Filed Vital Signs Vital Sign Reading [...] Mass Index 33.33 01/18/2025 1:20 PM EDT Plan of Treatment Upcoming Encounters Date Type Department Care Team (Late st Contact Info) Description 02/10/2025 1:30 PM EDT Appointment [facility] Bone Density [address] [place] [address] 02/10/2025 2:15 PM EDT [facility]ointment [facility] [address] [place] [address] 02/17/2025 10:00 AM EDT Appointment [facility] Endoscopy [address] [place] [address] Roberto Cannon DO [address] [address] 04/14/2025 3:00 PM EDT Office Visit Orthopedic Surgery - [place] [address] [phone] Pal Yang DPM [address] [address] 07/11/2025 1:00 PM EDT Office Visit Internal Medicine - [place] 175 [facility] [address] [place] [phone] Gabriella Adamson MD [address] [phone] Health Maintenance Due Date Last Done Comments Breast Cancer Screening 1959 Diabetes: Annual Foot Exam 1969 DTaP,Tdap,and Td Vaccines (1 - Tdap) 1978 Zoster Vaccines (1 of 2) 2009 RSV Immunization Patients 60+ Years Old (1 - Risk 60-74 years 1-dose series) 2019 Depression Screening 10/08/2022 Hepatitis C Screening 10/08/2022 Osteoporosis Screening (Bone Density Screening) 10/08/2022 Social Influencers of Health Screening 10/08/2022 Diabetes: Annual Urine Albumin-Creatinine Ratio (uACR) 10/12/2022 03/13/2021 Diabetes: Blood Sugar Control Test (HGBA1C) 10/12/2022 03/13/2021 COVID-19 Vaccine ( season) 2024 10/08/2022, 12/25/2020, 11/27/2020 Diabetes: Annual Retina Eye Exam 11/13/2024 11/13/2023 Cervical Cancer Screening: HPV 10/16/2025 10/16/2020 Falls Risk Assessment 01/07/2026 01/07/2025 Medicare Annual Wellness Visit 01/07/2026 01/07/2025 Diabetes: Annual GFR (Glomerular Filtration Rate) 01/18/2026 01/18/2025, 02/09/2024 Hypertension/CHF/CAD Annual BMP Blood Test 01/18/2026 01/18/2025, 02/09/2024 Cholesterol Screening (Lipid Panel) 11/20/2028 11/20/2023 Colorectal Cancer Screening: Colonoscopy 08/18/2033 08/18/2023 Pneumococcal Vaccine: 50+ Years Completed 06/05/2023, 08/07/2015 Pneumococcal Vaccine: Pediatrics (0 to 5 Years) and At-Risk Patients (6 to 64 Years) Completed 06/05/2023, 08/07/2015 Influenza Vaccine Completed 08/21/2024, , 10/03/2022, Additional history exists HIB Vaccines Aged Out No longer eligi ble based on patient's age to complete this topic HPV Vaccines Aged Out No longer eligi ble based on patient's age to complete this topic Hepatitis A Vaccines Aged Out No long er eligible based on patient's age to complete this topic Hepatitis B Vaccines Aged Out No long er eligible based on patient's age to complete this topic IPV Vaccines Aged Out No longer eligi ble based on patient's age to complete this topic MMR Vaccines Aged Out No longer eligi ble based on patient's age to complete this topic Meningococcal ACWY Vaccine Aged Out N o longer eligible based on patient's age to complete this topic Meningococcal B Vacine Aged Out No lo nger eligible based on patient's age to complete this topic RSV Immunization Patients Under 20 months Aged Out No longer eligible based on patient's age to complete this topic Varicella Vaccines Aged Out No longer eligible based on patient's age to complete this topic Procedures Procedure Name Priority Date/Time Associated Diagnosis Comments XR FEMUR 2+ VIEWS LEFT STAT 4:19 PM EDT XR TIBIA FIBULA 2 VIEWS LEFT STAT 01/18/2025 4:19 PM EDT VAS US DUPLEX LOWER EXT VENOUS LEFT STAT 01/18/2025 2:52 PM EDT Pain PROTHROMBIN TIME WITH INR STAT 01/18/2025 1:37 PM EDT CBC WITH AUTO DIFFERENTIAL STAT 01/18/2025 1:37 PM EDT COMPREHENSIVE METABOLIC PANEL STAT 01/18/2025 1:37 PM EDT CBC AND DIFFERENTIAL STAT 01/18/2025 1:37 PM EDT LIPID PANEL Routine 11/20/2023 HM DIABETES EYE EXAM Routine 11/13/2023 HM COLONOSCOPY Routine 08/18/2023 HM URINE ALBUMIN CREATININE RATIO Routine 03/13/2021 HEMOGLOBIN A1C Routine 03/13/2021 HM HPV Routine 10/16/2020 from Last 3 Months or Most Recently Relevant to Health Maintenance Results * XR Tibia Fibula 2 Views Left (01/18/2025 4:19 PM EDT) Anatomical Region Laterality Modality Lower Extremities, Lower Leg Left Rad iographic Imaging 01/19/2025 10:0 0 AM EDT Impressions 01/19/2025 10:01 AM EDT Impression: No significant abnormality identified. [employer] SOLITARIO ([id number]) -------- FINAL REPORT -------- Dictated By: Maricarmen Ahuja Dictated Date: 01/19/2025 10:00 ET Assigned Physician: Maricarmen Ahuja Reviewed and Electronically Signed By: Maricarmen Ahuja Signed Date: 01/19/2025 10:01 ET Workstation ID: [id number] Transcribed By: Self Edit Transcribed Date: 01/19/2025 [...] IMPRESSION: Impression: No significant abnormality identified. [employer] SOLITARIO ([id number]) -------- FINAL REPORT -------- Dictated By: Maricarmen Ahuja Dictated Date: 01/19/2025 10:00 ET Assigned Physician: Maricarmen Ahuja Reviewed and Electronically Signed By: Maricarmen Ahuja Signed Date: 01/19/2025 10:01 ET Workstation ID: [id number] Transcribed By: Self Edit Transcribed Date: 01/19/2025 10:00 ET us Oj Mayo MD IMG XR PROCEDURES Final Resu lt * XR Femur 2+ Views Left (01/18/2025 4:19 PM EDT) Anatomical Region Laterality Modality Lower Extremities, Femur Left Radiogr aphic Imaging 01/19/2025 9:59 AM EDT Impressions 01/19/2025 10:00 AM EDT Impression: No significant abnormality of the left femur. [employer] SOLITARIO ([id number]) -------- FINAL REPORT -------- Dictated By: Maricarmen Ahuja Dictated Date: 01/19/2025 09:59 ET Assigned Physician: Maricarmen Ahuja Reviewed and Electronically Signed By: Maricarmen Ahuja Signed Date: 01/19/2025 10:00 ET Workstation ID: [id number] Transcribed By: Self Edit Transcribed Date: 01/19/2025 [...] abnormality of the left femur. [employer] SOLITARIO ([id number]) -------- FINAL REPORT -------- Dictated By: Maricarmen Ahuja Dictated Date: 01/19/2025 09:59 ET Assigned Physician: Maricarmen Ahuja Reviewed and Electronically Signed By: Maricarmen Ahuja Signed Date: 01/19/2025 10:00 ET Workstation ID: [id number] Transcribed By: Self Edit Transcribed Date: 01/19/2025 09:59 ET us Oj Mayo MD IMG XR PROCEDURES Final Resu lt * Vascular US Duplex Lower Extremity Venous Left (01/18/2025 2:52 PM EDT) Anatomical Region Laterality Modality Vascular, Abdomen Ultrasound 01/18/2025 2:42 PM EDT Impressions 01/18/2025 2:43 PM EDT Impression: No evidence of deep vein thrombosis in the left femoral-popliteal venous segment. [employer] SOLITARIO ([id number]) -------- FINAL REPORT -------- Dictated By: Maricarmen Ahuja Dictated Date: 01/18/2025 14:42 ET Assigned Physician: Maricarmen Ahuja Reviewed and Electronically Signed By: Maricarmen Ahuja Signed Date: 01/18/2025 14:43 ET Workstation ID: [id number] Transcribed By: Self Edit Transcribed Date: 01/18/2025 [...] thrombosis in the leftfemoral-popliteal venous segment. [employer] SOLITARIO ([id number]) -------- FINAL REPORT -------- Dictated By: Maricarmen Ahuja Dictated Date: 01/18/2025 14:42 ET Assigned Physician: Maricarmen Ahuja Reviewed and Electronically Signed By: Maricarmen Ahuja Signed Date: 01/18/2025 14:43 ET Workstation ID: [id number] Transcribed By: Self Edit Transcribed Date: 01/18/2025 14:42 ET us Oj Mayo MD CV VASCULAR PROCEDURES Final Result * (ABNORMAL) CBC auto differential (01/18/2025 1:37 PM EDT) [facility] WBC 7.0 4.8 - 10.8 K/mcL LAB HEMETOLOGY METHOD 01/18/2025 2:56 PM EDT [facility] RBC 4.70 3.80 - 4.80 M/mcL LAB HEMETOLOGY METHOD 01/18/2025 2:56 PM EDT [facility] Hemoglobin 12.0 11.5 - 16.0 g/dL LAB HEMETOLOGY METHOD 01/18/2025 2:56 PM EDT [facility] Hematocrit 38.7 35.0 - 47.0 % LAB HEMETOLOGY METHOD 01/18/2025 2:56 PM EDT [facility] MCV 82.0 79.0 - 98.0 FL LAB HEMETOLOGY METHOD 01/18/2025 2:56 PM EDT [facility] MCH 25.4(L) 27.0 - 32.0 pcg LAB HEMETOLOGY METHOD 01/18/2025 2:56 PM EDT [facility] MCHC 31.0(L) 32.0 - 37.0 g/dL LAB HEMETOLOGY METHOD 01/18/2025 2:56 PM EDT [facility] RDW 15.2(H) 11.0 - 15.0 % LAB HEMETOLOGY METHOD 01/18/2025 2:56 PM EDT [facility] Platelets 225 130 - 400 K/mcL LAB HEMETOLOGY METHOD 01/18/2025 2:56 PM EDT [facility] MPV 10.6 7.0 - 11.0 FL LAB HEMETOLOGY METHOD 01/18/2025 2:56 PM EDT [facility] NRBC 0.0 <1.0 % LAB HEMETOLOGY METHOD 01/18/2025 2:56 PM EDT [facility] NRBC Absolute 0.00 <0.10 K/mcL LAB HEMETOLOGY METHOD 01/18/2025 2:56 PM EDT [facility] Neutrophils Relative 56.2 % LAB HEMETOLOGY METHOD 01/18/2025 2:56 PM EDT [facility] Lymphocytes Relative 32.6 % LAB HEMETOLOGY METHOD 01/18/2025 2:56 PM EDT [facility] Monocytes Relative 7.0 % LAB HEMETOLOGY METHOD 01/18/2025 2:56 PM EDT [facility] Eosinophils Relative 2.7 % LAB HEMETOLOGY METHOD 01/18/2025 2:56 PM EDT [facility] Basophils Relative 1.4 % LAB HEMETOLOGY METHOD 01/18/2025 2:56 PM EDT [facility] Immature Granulocytes Relative 0.1 % LAB HEMETOLOGY METHOD 01/18/2025 2:56 PM EDT [facility] Neutrophils Absolute 3.95 1.50 - 7.00 K/mcL LAB HEMETOLOGY METHOD [facility]/18[facility]25 [facility] Lymphocytes Absolute 2.29 1.00 - 5.00 K/mcL LAB HEMETOLOGY METHOD 01/18/2025 2:56 PM EDT [facility] Monocytes Absolute 0.49 0.20 - 1.00 K/mcL LAB HEMETOLOGY METHOD 01/18/2025 2:56 PM EDT [facility] Eosinophils Absolute 0.19 0.00 - 0.50 K/mcL LAB HEMETOLOGY METHOD 01/18/2025 2:56 [facility] Basophils Absolute 0.10 0.00 - 0.20 K/mcL LAB HEMETOLOGY METHOD 01/18/2025 2:56 PM EDT [facility] Immature Granulocytes Absolute 0.01 0.00 - 0.03 K/mcL LAB HEMETOLOGY METHOD 01/18/2025 2:56 PM EDT [facility] Blood Venous blood specimen / Unknown Venipuncture / Unknown 01/18/2025 1:37 PM EDT 01/18/2025 2:50 PM EDT us Oj Mayo MD LAB BLOOD ORDERABLES Final R esult Performing Organization Address [facility] Co de Phone Number [facility] [address] [place] [address], [place] [phone] * Prothrombin time with INR (01/18/2025 1:37 PM EDT) Pathologist [facility] Protime 11.0 10.6 - 13.9 sec LAB COAGULATION METHOD 01/18/2025 2:59 PM EDT [facility] INR 0.9 LAB COAGULATION METHOD 01/18/2025 2:59 PM EDT [facility] Blood Venous blood specimen / Unknown Venipuncture / Unknown 01/18/2025 1:37 PM EDT 01/18/2025 2:50 PM EDT us Oj Mayo MD LAB BLOOD ORDERABLES Final R esult Performing Organization Address [facility]/ZIP Co de Phone Number [facility] [address] [place] [address], [place] [phone] * (ABNORMAL) Comprehensive metabolic panel (01/18/2025 1:37 PM EDT) Sodium 140 133 - 145 mmol/L LAB CHEMISTRY METHOD 01/18/2025 3:33 PM EDT [facility] Potassium 4.2 3.5 - 5.5 mmol/L LAB CHEMISTRY METHOD 01/18/2025 3:33 PM EDT [facility] Chloride 109 96 - 110 mmol/L LAB CHEMISTRY METHOD 01/18/2025 3:33 PM [facility] CO2 25 21 - 32 mmol/L LAB CHEMISTRY METHOD 01/18/2025 3:33 PM [facility] Anion Gap 6 3 - 11 LAB CHEMISTRY METHOD 01/18/2025 3:33 PM [facility] Glucose 152(H) 70 - 100 mg/dL LAB CHEMISTRY METHOD 01/18/2025 3:33 PM [facility] BUN 19 5 - 25 mg/dL LAB CHEMISTRY METHOD 01/18/2025 3:33 PM [facility] Creatinine 0.88 0.50 - 1.10 mg/dL LAB CHEMISTRY METHOD 01/18/2025 3:33 PM [facility] eGFR 73 >=60 mL/min/1. 73m2 LAB CHEMISTRY METHOD 01/18/2025 3:33 PM [facility] Comment:Calculation based on the??Chronic Kidney Disease Epidemiology Collaboration (CKD-EPI) equation refit??without adjustment for race. BUN/Creatinine Ratio 21.6 LAB CHEMISTRY METHOD 01/18/2025 3:33 PM [facility] Calcium 9.3 8.5 - 10.5 mg/dL LAB CHEMISTRY METHOD 01/18/2025 3:33 PM [facility] AST (SGOT) 19 10 - 42 unit/L LAB CHEMISTRY METHOD 01/18/2025 3:33 PM [facility] ALT (SGPT) 17 10 - 60 unit/L LAB CHEMISTRY METHOD 01/18/2025 3:33 PM [facility] Alkaline Phosphatase 152(H) 42 - 121 unit/L LAB CHEMISTRY METHOD 01/18/2025 3:33 PM [facility] Total Protein 6.9 6.0 - 8.0 g/dL LAB CHEMISTRY METHOD 01/18/2025 3:33 PM [facility] Albumin 3.9 3.2 - 5.0 g/dL LAB CHEMISTRY METHOD 01/18/2025 3:33 PM EDT [facility] Total Bilirubin 0.3 0.0 - 1.4 mg/dL LAB CHEMISTRY METHOD 01/18/2025 3:33 PM EDT [facility] Blood Venous blood specimen / Unknown Venipuncture / Unknown 01/18/2025 1:37 PM EDT 01/18/2025 2:50 PM EDT Result [facility] Oj Mayo MD LAB BLOOD ORDERABLES Final R esult [facility] [address] [place] [address], [place] [phone] * (ABNORMAL) Lipid panel (11/20/2023) [facility] LDL/HDL Ratio 4 0 - 4 Triglycerides 242(A) 0 - 150 mg/dL Cholesterol 212(A) 0 - 200 mg/dL HDL 52 >=40 mg/dL LDL Cholesterol 112(A) 0 - 100 mg/dL Blood Venous blood specimen / Unknown Result [facility] Gareth RODRIGUEZ LAB BLOOD ORDERABLES Emma l Result * Diabetes Eye Exam (11/13/2023) [facility] Diabetes: Annual Retina Eye Exam Abstracted Result [facility] Gareth RODRIGUEZ HEALTH MAINTENANCE Final Result * Colonoscopy (08/18/2023) [facility] Colonoscopy No Interpretation , Abstracted Anatomical Region Laterality Modality Other Result [facility] Gareth RODRIGUEZ HEALTH MAINTENANCE Final Result * Urine Albumin Creatinine Ratio (03/13/2021) [facility] Urine Albumin Creatinine Ratio Abstracted Result [facility] Provider HEALTH MAINTENANCE Final Result * (ABNORMAL) Hemoglobin A1c (03/13/2021) [facility] Hemoglobin A1C 8.2(A) <=6.5 % Blood Venous blood specimen / Unknown Historical Provider LAB BLOOD ORDERABLES Emma l Result * Cervical Cancer Screening: HPV (10/16/2020) Pathologist [facility] Cervical Cancer Screening: HPV Negative, Abstracted Historical Provider HEALTH MAINTENANCE Final Result from Last 3 Months or Most Recently Relevant to Health Maintenance Insurance MEDICARE [facility] MEDICAID - [place] Care Teams Barkeep Relationship Specialty Start Date End Date Gabriella Adamson MD 175 [facility] [address] [place] [address] PCP - General Internal Medicine 09/23/24
--- OUTSIDE RECORDS SUMMARY | 2025-01-22 11:22 | XMS_ITS | Encounter Summary ---
Author Organization [facility] Address [id number] [place] [phone] Care Team Providers Care Mobile Application Architect Name Role Phone Gabriella Adamson MD Primary Care Provider [phone] Reason for Referral * Consultation (Routine) - Authorized Specialty Diagnoses / Procedures Referred By Contac t Referred To Contact Physical Medicine and Rehabilitation Diagnoses Chronic midline low back pain without sciatica Procedures NH VISIT OFFICE OUTPATIENT ESTABLISHED MODERATE LEVEL Gabriella Adamson MD [address] [address] Phone: tel: fax: [facility] [address] [place] [address] [address] [place] [address] Phone: tel: fax: Referral ID Status Reason Start Date Expiration Date Visits Requested Visits Authorized [id number] Authorized Specialty Services Required 01/07/2025 01/07/2026 1 1 * Imaging (Routine) - Authorized Specialty Diagnoses / Procedures Referred By Contac t Referred To Contact Radiology Diagnoses Postmenopausal state Procedures BD Bone Density DXA Axial Skeleton Gabriella Adamson MD [address] [address] Phone: tel: fax: [facility] [address] [place] [address] Phone: tel: Referral ID Status Reason Start Date Expiration Date V isits Requested Visits Authorized [id number] Authorized 01/07/2025 01/07/2026 1 1 * Imaging (Routine) - Authorized Specialty Diagnoses / Procedures Referred By Huber mendes Referred To Contact Radiology Diagnoses Breast cancer screening by mammogram Procedures MG Mammo Digital Screening bilat Gabriella Adamson MD [address] [phone] Phone: tel: fax: [facility] [address] [place] [address] Phone: tel: Referral ID Status Reason Start Date Expiration Date V isits Requested Visits Authorized [id number] Authorized 01/07/2025 01/07/2026 1 1 * Consultation (Routine) - Closed Specialty Diagnoses / Procedures Referred By Huber mendes Referred To Contact Podiatry / Orthopaedic Surgery Diagnoses Type 2 diabetes mellitus with obesity (CMS/HCC) Pain in both feet Procedures NH VISIT OFFICE OUTPATIENT ESTABLISHED MODERATE LEVEL Gabriella Adamson MD [address] [address] Phone: tel: fax: Orthopedic Surgery [facility] [address] [address] Phone: tel: fax: Referral ID Status Reason Start Date Expiration Date V isits Requested Visits Authorized [id number] Closed Specialty Services Required 01/07/2025 01/07/2026 1 1 Encounter Details Date Type Department Care Team (Late st Contact Info) Description 01/07/2025 9:30 AM EDT Office Visit Internal Medicine - [place] [address] [phone] Gabriella Adamson MD [address] [phone] Type 2 diabetes mellitus with obesity (CMS/HCC) (Primary Dx); Pain in both feet; Breast cancer screening by mammogram; Postmenopausal state; Chronic midline low back pain without sciatica; Encounter for subsequent annual wellness visit (AWV) in Medicare patient Social History Tobacco Use Types Packs/Day Years [...] Sign Reading Time Taken Comments Blood Pressure 126/72 01/07/2025 9:15 AM EDT Pulse - - Temperature 36.8 ??C (98.2 ??F) 01/07/2025 9:15 AM ED T Respiratory Rate - - Oxygen Saturation - - Inhaled Oxygen Concentration - - Weight 72.5 kg (159 lb 12.8 oz) 01/07/2025 9:15 AM EDT Height 149.9 cm (4' 11 ) 01/07/2025 9:15 AM EDT Body Mass Index 32.28 01/07/2025 9:15 AM EDT documented in this encounter Progress Notes * Gabriella Adamson MD - 01/07/2025 9:30 AM EDTAssociated Problem(s): Type 2 diabetes mellitus with obesity (CMS/HCC) Orders: Ambulatory referral to Podiatry; Future * Gabriella Adamson MD - 01/07/2025 9:30 AM EDT Images from the original note were not included. CHIEF COMPLAINT: No chief complaint on file. IDENTIFIER: Jenelle Tate is a 64 y.o. old female. HPI:Diabetes, following endocrine at [facility] Dr. Looney, on insulin pump,hypothyroidism, hypertension, depression, COPD. Patient is following endocrine Dr. Looney recently had labs showing slightly elevated alk phos,, patient is looking for a bone density referral Patient is feeling very depressed because of her financial situation, and also losing her job, requesting a therapist. She is currently living with her niece, no suicidal or homicidal thoughts. ROS: GENERAL: No malaise, significant weight loss or fever NECK: No lumps, goiter, pain or significant neck swelling RESPIRATORY: No cough, wheezing or shortness of breath CARDIOVASCULAR: No chest pain, leg swelling or palpitations GI: No abdominal discomfort, blood in stools or black stools PSYCH: No sleep disturbance, mood disorder or recent psychosocial stressors. PAST MEDICAL HISTORY: Patient Active Problem List Diagnosis Date Noted Change in stool 08/22/2024 Rectal bleeding 08/22/2024 Upset stomach 08/22/2024 Abscess of chest ([facility]) 10/27/2021 Ovarian mass 10/27/2021 Pulmonary nodules 10/27/2021 Diabetic gastroparesis ([facility]) 11/18/2020 Vitamin B12 deficiency 05/30/2019 COPD (chronic obstructive pulmonary disease) ([facility]) 06/21/2018 Allergic rhinitis 03/07/2018 Depression 03/07/2018 Hyperlipidemia 03/07/2018 Hypertension 03/07/2018 Hypothyroid 03/07/2018 Iron deficiency anemia 03/07/2018 Irritable bowel syndrome with constipation 03/07/2018 Migraine 03/07/2018 Thyroid nodule 03/07/2018 Type 2 diabetes mellitus with obesity ([facility]) 03/07/2018 Moderate persistent asthma 09/13/2017 VALARIE (obstructive sleep apnea) 09/13/2017 Past Surgical History: Procedure Laterality Date COLONOSCOPY 06/18/2015 PROCEDURE: HISTORICAL COLONOSCOPY; COMMENT: [email or web address]. UPPER GASTROINTESTINAL ENDOSCOPY 06/18/2015 PROCEDURE: [place] UPPER GI ENDOSCOPY PERFORMED; COMMENT: [email or web address]. UPPER GASTROINTESTINAL ENDOSCOPY 11/18/2020 PROCEDURE: [place] UPPER GI ENDOSCOPY PERFORMED; COMMENT: Food in stomach suggesting gastroparesis; otherwise normal; not on PPI treatment. WRIST SURGERY PROCEDURE: HISTORICAL WRIST SURGERY SOCIAL HISTORY: Social History Tobacco Use Smoking status: Never Smokeless tobacco: Never Substance Use Topics Alcohol use: No FAMILY HISTORY: Family History Problem Relation Name Age of Onset Diabetes Mother osteoporosis, Heart attack Father 60.00 Breast cancer Neg Hx Ovarian cancer Neg Hx Family Status Relation Name Status Mother Alive Father Neg Hx (Not Specified) No partnership data on file MEDICATIONS DISCONTINUED/REORDERED: There are no discontinued medications. ACTIVE MEDICATIONS: Outpatient Medications Marked as Taking for the 01/07/25 encounter (Office Visit) with Gabriella Adamson MD Medication Sig Dispense Refill albuterol HFA (PROAIR HFA ; PROVENTIL HFA ; VENTOLIN HFA) 90 mcg/actuation inhaler INHALE 2 PUFFS INTO THE LUNGS EVERY 6 HOURS NEEDED FOR COUGH OR WHEEZING amLODIPine (NORVASC) 2.5 mg tablet TAKE 1 TABLET BY MOUTH DAILY benzonatate (TESSALON) 100 mg capsule Take 1 Capsule by mouth 3 times daily as needed for Cough forup to 7 days. - Oral blood sugar diagnostic (FreeStyle Lite Strips) test strip Use 1 strip every day 3 times a day,subcutaneous blood-glucose meter kit Use to check finger stick blood sugar three times a day buPROPion XL (WELLBUTRIN XL) 300 mg 24 hr tablet Take 1 Tablet by mouth every morning. cetirizine (ZyrTEC) 10 mg tablet cholecalciferol (VITAMIN D-3) 25 mcg (1,000 unit) capsule Take 1 capsule by mouth daily. cyanocobalamin (VITAMIN B-12) 1,000 mcg tablet TAKE 1 TABLET BY MOUTH DAILY docusate sodium (COLACE) 100 mg capsule Take 1 Capsule by mouth 2 times daily. fluticasone propion-salmeteroL (Advair HFA) 230-21 mcg/actuation inhaler INHALE 2 PUFFS BY MOUTH TWICE DAILY fluticasone propionate (FLONASE) 50 mcg/actuation nasal spray SHAKE LIQUID AND USE 2 SPRAYS IN EACHNOSTRIL DAILY insulin lispro 100 unit/mL injection Inject into the skin 3 times daily (before meals). levothyroxine (SYNTHROID, LEVOTHROID) 88 mcg tablet Take 1 Tablet by mouth daily. - Oral linaCLOtide (Linzess) 145 mcg capsule Take 1 Capsule by mouth daily. lisinopriL (PRINIVIL,ZESTRIL) 30 mg tablet Take 1 Tablet by mouth daily. montelukast (SINGULAIR) 10 mg tablet ondansetron (ZOFRAN) 4 mg tablet TAKE 1 TABLET BY MOUTH EVERY 12 HOURS NEEDED FOR NAUSEA pravastatin (PRAVACHOL) 20 mg tablet TAKE 1 TABLET BY MOUTH DAILY predniSONE (DELTASONE) 20 mg tablet 2 tab for 3 days and then 1 tab daily umeclidinium (Incruse Ellipta) 62.5 mcg/actuation inhalation INHALE 1 PUFF DAILY. VITAMIN A ORAL Take by mouth. ALLERGIES: Allergies Allergen Reactions Penicillins PHYSICAL EXAM: Visit Vitals BP 126/72 (BP Location: Left arm, Patient Position: Sitting, BP Cuff Size: Adult) Temp 36.8 ??C (98.2 ??F) (Temporal) Ht 1.499 m (59 ) Wt 72.5 kg (159 lb 12.8 oz) BMI 32.28 kg/m?? Smoking Status Never BSA 1.68 m?? APPEARANCE: Alert and in no acute distress NECK: Neck supple, no adenopathy, thyroid symmetric and of normal size HEART: RRR with normal S1 and S2, no murmurs, no gallops, no JVD appreciated LUNG: clear to auscultation ABDOMEN: Bowel sounds normoactive, no bruits, soft, non-tender, without organomegaly or palpable masses SKIN: Skin color, texture, turgor normal. No rashes or lesions. LABS/IMAGING: Abstract on 08/22/2024 Component Date Value Ref Range Status HM Gonorrhea/Chlamydia Screening 10/16/2020 Abstracted Final Annual BMP Blood Test 02/09/2024 Abstracted Final Cervical Cancer Screening: HPV 10/16/2020 Negative, Abstracted Final HM Pap smear 10/16/2020 Negative, Abstracted Final HM Colonoscopy 08/18/2023 No Interpretation, Abstracted Final Diabetes: Annual Retina Eye Exam 11/13/2023 Abstracted Final HM Urine Albumin Creatinine Ratio 03/13/2021 Abstracted Final LDL/HDL Ratio 11/20/2023 4 0 - 4 Final Triglycerides 11/20/2023 242 (A) 0 - 150 mg/dL Final Cholesterol 11/20/2023 212 (A) 0 - 200 mg/dL Final HDL 11/20/2023 52 >=40 mg/dL Final LDL Cholesterol 11/20/2023 112 (A) 0 - 100 mg/dL Final Hemoglobin A1C 03/13/2021 8.2 (A) <=6.5 % Final Medication and lab orders: Orders Placed This Encounter Procedures MG Mammo Digital Screening bilat BD Bone Density DXA Axial Skeleton Ambulatory referral to Podiatry Ambulatory referral to Physical Medicine Rehab Other orders: AMB REFERRAL TO PODIATRY AMB REFERRAL TO PHYSICAL MEDICINE REHAB MG MAMMO DIGITAL SCREENING BILAT BD BONE DENSITY DXA AXIAL SKELETON IMPRESSION: 1. Type 2 diabetes mellitus with obesity ([facility]/HCC) 2. Pain in both feet 3. Breast cancer screening by mammogram 4. Postmenopausal state 5. Chronic midline low back pain without sciatica 6. Encounter for subsequent annual wellness visit (AWV) in Medicare patient PLAN: Hypertension--we will continue lisinopril 30 mg daily, amlodipine 5 mg, blood pressure stable. Depression--on Wellbutrin 300 mg daily, encouraged patient to schedule an appointment with therapist, no suicidal or homicidal thoughts Hypothyroidism--continue levothyroxine, following endocrine Diabetes--following endocrine Dr. Looney at [facility], on insulin pump. Last A1c was 8.1. 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 We will follow-up in 6 months or sooner as needed Gabriella Adamson MD on 01/07/2025 at 9:52 AM EDT Medicare Annual Wellness Visit Note Patient Name: Jenelle Tate Date of : 1960 Race: Unknown Ethnicity: Other , /a, or Sinhala origin Date of Service: 01/07/2025 Patient Care Team: Gabriella Adamson MD as PCP - General (Internal Medicine) Patient does not currently have/use medical supplier. Jenelle is a 64 y.o. female presenting for No chief complaint on file. HPI Patient Active Problem List Diagnosis Abscess of chest (CMS/HCC) Allergic rhinitis Change in stool COPD (chronic obstructive pulmonary disease) (CMS/HCC) Depression Diabetic gastroparesis ([facility]) Hyperlipidemia Hypertension Hypothyroid Iron deficiency anemia Irritable bowel syndrome with constipation Migraine Moderate persistent asthma VALARIE (obstructive sleep apnea) Ovarian mass Pulmonary nodules Rectal bleeding Thyroid nodule Upset stomach Vitamin B12 deficiency Type 2 diabetes mellitus with obesity ([facility]) Allergies Allergen Reactions Penicillins Current Outpatient Medications Medication Instructions albuterol HFA (PROAIR HFA ; PROVENTIL HFA ; VENTOLIN HFA) 90 mcg/actuation inhaler INHALE 2 PUFFS INTO THE LUNGS EVERY 6 HOURS NEEDED FOR COUGH OR WHEEZING amLODIPine (NORVASC) 2.5 mg tablet TAKE 1 TABLET BY MOUTH DAILY benzonatate (TESSALON) 100 mg capsule Take 1 Capsule by mouth 3 times daily as needed for Cough forup to 7 days. - Oral blood sugar diagnostic (FreeStyle Lite Strips) test strip Use 1 strip every day 3 times a day,subcutaneous blood-glucose meter kit Use to check finger stick blood sugar three times a day buPROPion XL (WELLBUTRIN XL) 300 mg 24 hr tablet Take 1 Tablet by mouth every morning. cetirizine (ZyrTEC) 10 mg tablet cholecalciferol (VITAMIN D-3) 25 mcg (1,000 unit) capsule Take 1 capsule by mouth daily. cyanocobalamin (VITAMIN B-12) 1,000 mcg tablet TAKE 1 TABLET BY MOUTH DAILY docusate sodium (COLACE) 100 mg capsule Take 1 Capsule by mouth 2 times daily. fluticasone propion-salmeteroL (Advair HFA) 230-21 mcg/actuation inhaler INHALE 2 PUFFS BY MOUTH TWICE DAILY fluticasone propionate (FLONASE) 50 mcg/actuation nasal spray SHAKE LIQUID AND USE 2 SPRAYS IN EACHNOSTRIL DAILY insulin lispro 100 unit/mL injection Inject into the skin 3 times daily (before meals). levothyroxine (SYNTHROID, LEVOTHROID) 88 mcg tablet Take 1 Tablet by mouth daily. - Oral linaCLOtide (Linzess) 145 mcg capsule Take 1 Capsule by mouth daily. lisinopriL (PRINIVIL,ZESTRIL) 30 mg tablet Take 1 Tablet by mouth daily. montelukast (SINGULAIR) 10 mg tablet ondansetron (ZOFRAN) 4 mg tablet TAKE 1 TABLET BY MOUTH EVERY 12 HOURS NEEDED FOR NAUSEA pravastatin (PRAVACHOL) 20 mg tablet TAKE 1 TABLET BY MOUTH DAILY predniSONE (DELTASONE) 20 mg tablet 2 tab for 3 days and then 1 tab daily umeclidinium (Incruse Ellipta) 62.5 mcg/actuation inhalation INHALE 1 PUFF DAILY. VITAMIN A ORAL Take by mouth. Past Medical History: Diagnosis Date Allergic rhinitis 03/07/2018 DX:Allergic rhinitis Change in stool DX:Change in stool Constipation DX:Constipation COPD (chronic obstructive pulmonary disease) ([facility]) 06/21/2018 DX:COPD (chronic obstructive pulmonary disease) (HCC) Depression 03/07/2018 DX:Depression Diabetes mellitus type 2 in obese 03/07/2018 DX:Diabetes mellitus type 2 in obese Diabetic gastroparesis (CMS/HCC) 11/18/2020 DX:Diabetic gastroparesis (HCC); COMMENT: 11/18/2020: EGD showed solid food in stomach after overnight fast. Hyperlipidemia 03/07/2018 DX:Hyperlipidemia Hypertension 03/07/2018 DX:Hypertension Hypothyroid 03/07/2018 DX:Hypothyroid Iron deficiency anemia 03/07/2018 DX:Iron deficiency anemia Irritable bowel syndrome with constipation 03/07/2018 DX:Irritable bowel syndrome with constipation Migraine 03/07/2018 DX:Migraine Moderate persistent asthma 09/13/2017 DX:Moderate persistent asthma VALARIE (obstructive sleep apnea) 09/13/2017 DX:VALARIE (obstructive sleep apnea) Rectal bleeding DX:Rectal bleeding Supplemental oxygen dependent 03/07/2018 DX:Supplemental oxygen dependent Thyroid nodule 03/07/2018 DX:Thyroid nodule Upset stomach DX:Upset stomach Vitamin B12 deficiency 05/30/2019 DX:Vitamin B12 deficiency Past Surgical History: Procedure Laterality Date COLONOSCOPY 06/18/2015 PROCEDURE: HISTORICAL COLONOSCOPY; COMMENT: [email or web address]. UPPER GASTROINTESTINAL ENDOSCOPY 06/18/2015 PROCEDURE: [place] UPPER GI ENDOSCOPY PERFORMED; COMMENT: [email or web address]. UPPER GASTROINTESTINAL ENDOSCOPY 11/18/2020 PROCEDURE: [place] UPPER GI ENDOSCOPY PERFORMED; COMMENT: Food in stomach suggesting gastroparesis; otherwise normal; not on PPI treatment. WRIST SURGERY PROCEDURE: HISTORICAL WRIST SURGERY Social History Tobacco Use Smoking status: Never Smokeless tobacco: Never Substance Use Topics Alcohol use: No Drug use: No Family History Problem Relation Name Age of Onset Diabetes Mother osteoporosis, Heart attack Father 60.00 Breast cancer Neg Hx Ovarian cancer Neg Hx Immunization History Administered Date(s) Administered Influenza trivalent, 0.5mL (Fluzone High-dose) 65yo and older 08/21/2024 Influenza, Unspecified 08/14/2019 Moderna (age 6mo & older) Bivalent, COVID-19, 0.5 mL or 0.25 mL dosage 10/08/2022 Tetanus Toxoid, Unspecified 08/05/2019 Health Maintenance Topic Date Due Breast Cancer Screening Never done Diabetes: Annual Foot Exam Never done DTaP,Tdap,and Td Vaccines (1 - Tdap) Never done Zoster Vaccines (1 of 2) Never done RSV Immunization Patients 60+ Years Old (1 - Risk 60-74 years 1-dose series) Never done Depression Screening Never done Hepatitis C Screening Never done Osteoporosis Screening (Bone Density Screening) Never done Social Influencers of Health Screening Never done Medicare Annual Wellness Visit Never done Diabetes: Blood Sugar Control Test (HGBA1C) 10/12/2022 Diabetes: Annual Urine Albumin-Creatinine Ratio (uACR) 10/12/2022 COVID-19 Vaccine ( season) 2024 Diabetes: Annual Retina Eye Exam 11/13/2024 Diabetes: Annual GFR (Glomerular Filtration Rate) 02/08/2025 Hypertension/CHF/CAD Annual BMP Blood Test 02/08/2025 Cervical Cancer Screening: HPV 10/16/2025 Falls Risk Assessment 01/07/2026 Cholesterol Screening (Lipid Panel) 11/20/2028 Colorectal Cancer Screening: Colonoscopy 08/18/2033 Influenza Vaccine Completed Pneumococcal Vaccine: Pediatrics (0 to 5 Years) and At-Risk Patients (6 to 64 Years) Completed Pneumococcal Vaccine: 50+ Years Completed HIB Vaccines Aged Out Hepatitis B Vaccines Aged Out IPV Vaccines Aged Out Hepatitis A Vaccines Aged Out MMR Vaccines Aged Out Varicella Vaccines Aged Out Meningococcal ACWY Vaccine Aged Out Meningococcal B Vacine Aged Out HPV Vaccines Aged Out RSV Immunization Patients Under 20 months Aged Out Hospitalization in the last year: Has not been hospitalized in the past 12 months. Cognitive Function Assessment: Cognitive screening performed. Mini COG Clock Drawing Test: Abnormal Word Recall: One Word Mini Cog Score: 1 Mini Cog Results: Positive screen for dementia Fall Screening: Have you fallen in the past year? no. Are you worried about falling? yes. . Functional Ability and Level of Safety Review Health Status: In general, the patient reports health as: fair In general, patient reports life as: poor Patient reports sleep pattern as: restless Have you seen a dentist in the last year?: Yes Activity of Daily Living (ADLs): Do you need help from others for your personal care such as eating, dressing, toileting, or gettingaround the house?: No Do you experience incontinence?: Yes Instrumental Activities of Daily Living (IADLs): Do you need help with using the telephone?: No Do you need help with shopping?: Yes Do you need help with food preparation?: Yes Do you need help with housekeeping?: No Do you need help with laundry?: No Do you need help handling finances?: No Do you drive?: Yes Do you manage your own medication?: Yes, independent Physical Activity: Do you exercise for about 20 minutes or more three days a week?: No Nutritional Assessment: Do you eat a balanced diet including daily serving of fruits, vegetables, and whole grains?: Yes, sometimes Sexual Health: Have you been bothered by sexual problems: No Review of Systems Objective BP 126/72 (BP Location: Left arm, Patient Position: Sitting, BP Cuff Size: Adult) Temp 36.8 ??C (98.2 ??F) (Temporal) Ht 1.499 m (59 ) Wt 72.5 kg (159 lb 12.8 oz) BMI 32.28 kg/m?? Hearing: No data recorded Vision Screening: Required for Medicare Initial Preventative Physical Exam (IPPE) No data recorded Physical Exam Patient presented today for an Subsequent Medicare Wellness Visit with management of chronic condition(s). Assessment & Plan Type 2 diabetes mellitus with obesity ([facility]) Orders: Ambulatory referral to Podiatry; Future Pain in both feet Orders: Ambulatory referral to Podiatry; Future Breast cancer screening by mammogram Orders: MG Mammo Digital Screening bilat; Future Postmenopausal state Orders: BD Bone Density DXA Axial Skeleton; Future Chronic midline low back pain without sciatica Orders: Ambulatory referral to Physical Medicine Rehab; Future Encounter for subsequent annual wellness visit (AWV) in Medicare patient Risk Assessments: Body mass index is 32.28 kg/m??. The BMI is above average. The patient received dietary education because they have an above normal BMI. Fall Risk: Have you fallen in the past year? no. Are you worried about falling? yes. Discussed: notrushing through tasks Depression plan: Refer to counselor Pain Medication: Patient does not take any opioid medications Advance Care Planning Advance care planning is the process of planning for future medical care in case you are unable to make your own medical decisions. It involves choosing a health care telephone sales representative and reviewing future health care directives. The patient Advance Directives: does not have advance directives or surrogate decision maker.. Advance directives reviewed and/or discussed: Patient is not interested in discussing advance care planning or health care agent at this time. Health Maintenance Due Topic Date Due Breast Cancer Screening Never done Diabetes: Annual Foot Exam Never done DTaP,Tdap,and Td Vaccines (1 - Tdap) Never done Zoster Vaccines (1 of 2) Never done RSV Immunization Patients 60+ Years Old (1 - Risk 60-74 years 1-dose series) Never done Depression Screening Never done Hepatitis C Screening Never done Osteoporosis Screening (Bone Density Screening) Never done Social Influencers of Health Screening Never done Medicare Annual Wellness Visit Never done Diabetes: Blood Sugar Control Test (HGBA1C) 10/12/2022 Diabetes: Annual Urine Albumin-Creatinine Ratio (uACR) 10/12/2022 COVID-19 Vaccine ( season) 2024 Diabetes: Annual Retina Eye Exam 11/13/2024 The following vaccine(s) were recommended: Vaccines Recommended: Shingles vaccines (Shringrix) Patient Instructions (the written plan) as discussed and documented in our visit today. Patient has mild cognitive impairment, she says her memory is bad. Depressed, encouraged to get a therapist Independent ADLs and IADLs Gabriella Adamson MD [facility] - [place] [address] [phone] Dept: [phone] Dept documented in this encounter Plan of Treatment Upcoming Encounters Date Type Department Care Team (Late st Contact Info) Description 02/10/2025 1:30 PM EDT Appointment [facility] Bone Density [address] [place] [phone] 02/10/2025 2:15 PM EDT Appointment [facility] [address] [place] [phone] 02/17/2025 10:00 AM EDT Appointment [facility] Endoscopy [address] [place] [phone] Roberto Cannon DO 175 [facility] [address] [place] [address] 04/14/2025 3:00 PM EDT Office Visit Orthopedic Surgery - [place] 250 175 [facility] [address] [place] [phone] Pal Yang, DPM 175 [facility] [address] [place] [address] 07/11/2025 1:00 PM EDT Office Visit Internal Medicine - [place] 175 [facility] [address] [place] [phone] Gabriella Adamson MD 175 [facility] [address] [place], [place] [id number] Scheduled Orders Name Type Priority Associated Diagnoses Orde r Schedule MG Mammo Digital Screening bilat Imaging Routine Breast cancer screening by mammogram 1 Occurrences starting 01/07/2025 until 01/07/2026 BD Bone Density DXA Axial Skeleton Imaging Routine Postmenopausal state 1 Occurrences starting 01/07/2025 until 01/07/2026 Scheduled Referrals Name Type Priority Associated Diagnoses Order Schedule Ambulatory referral to Podiatry Outpatient Referral Routine Type 2 diabetes mellitus with obesity (CMS/HCC) Pain in both feet 1 Occurrences starting 01/07/2025 until 01/07/2026 Ambulatory referral to Physical Medicine Rehab Outpatient Referral Routine Chronic midline low back pain without sciatica 1 Occurrences starting 01/07/2025 until 01/07/2026 documented as of this encounter Visit Diagnoses Diagnosis Type 2 diabetes mellitus with obesity (CMS/HCC)- Primary Pain in both feet Breast cancer screening by mammogram Postmenopausal state Asymptomatic postmenopausal status (age-related) (natural) Chronic midline low back pain without sciatica Encounter for subsequent annual wellness visit (AWV) in Medicare patient documented in this encounter Care Teams Mobile Application Architect Relationship Specialty Start Date End Date Gabriella Adamson MD [address] [facility] [address] [place] [id number] PCP - General Internal Medicine 09/23/24 documented as of this encounter
== END 2025-01-22 11:27 | disposition home or self-care (01) ==
LOC: HO.HPS 09:59
PROVIDERS: PCP Internal Medicine; Visit Provider Hospitalist
DX: R91.8 Other nonspecific abnormal finding of lung field (principal); K44.9 Diaphragmatic hernia without obstruction or gangrene; J44.9 Chronic obstructive pulmonary disease, unspecified; G47.33 Obstructive sleep apnea (adult) (pediatric); R76.8 Other specified abnormal immunological findings in serum
CPT/HCPCS: 99214

== ENCOUNTER → 2025-01-22 09:58 | Outpatient (BNVA) | payer MEDICARE, SELFPAY | PROVIDERS: PCP Internal Medicine; Visit Provider Hospitalist | DX: R91.8 Other nonspecific abnormal finding of lung field (principal); R76.8 Other specified abnormal immunological findings in serum; J44.9 Chronic obstructive pulmonary disease, unspecified; G47.33 Obstructive sleep apnea (adult) (pediatric); K44.9 Diaphragmatic hernia without obstruction or gangrene | CPT/HCPCS: 99212 ==